=== PATIENT | female | born 1945 | race Caucasian/White ===

== ENCOUNTER → 2017-06-08 | Outpatient (REF) | payer MEDICARE | LOC: M LAB REF 12:52 | PROVIDERS: ATTEND Family Medicine | DX: D64.9 Anemia, unspecified (principal) ==

== ENCOUNTER → 2017-07-10 | Outpatient (CLI) | payer MEDICARE ==
--- NOTE | 2017-07-10 11:33 | REPMRS ---
Patient History The patient states she has not had a clinical breast exam in over a year. No known family history of cancer. 3 excisional biopsies of both breasts. Digital Woman Screen Mammo: July 10, 2017 - Exam #: [id number] Bilateral CC and MLO view(s) were taken. Technologist: Fina Vazquez, Technologist Prior study comparison: June 18, 2016, digital woman screen mammo performed at [facility] to [facility]. October 03, 2014, digital woman screen mammo performed at [facility] to [facility]. FINDINGS: There are scattered fibroglandular densities. There has been no change in the appearance of the mammogram from the prior studies. There is a mild amount of residual fibroglandular tissue which is fairly symmetric. There is no interval development of dominant mass, architectural distortion, or clustered microcalcification suggestive of malignancy. ASSESSMENT: BI-RADS/ACR category 1 mammogram. Negative. Recommendation Routine screening mammogram in 1 year (for women over age 40). This mammogram was interpreted with the aid of an FDA-approved computer-aided dectection system. Electronically Signed By: Jesus Case MD 07/10/17 [id number]
--- NOTE | 2017-07-13 09:34 | DEXA ---
AP SPINE L1 - L4 1.358 1.3 3.0 LT FEMUR TOTAL 0.991 -0.1 1.5 RT FEMUR TOTAL 1.004 0.0 1.6 TOTAL BODY TOTAL OTHER DUAL FEMUR FRAX* ASSESSMENT Risk factors: Not performed. 10 year probability of fracture Major osteoporotic fracture % Hip fracture % COMMENTS: Normal bone densitometry of the spine. There is low bone density of the hips. FOLLOW-UP: Recommendation for the next bone density exam: 2 years. KIM
== END ==
LOC: M WHC 08:29
PROVIDERS: ATTEND Family Medicine
DX: Z12.31 Encounter for screening mammogram for malignant neoplasm of breast (principal); Z78.0 Asymptomatic menopausal state
CPT/HCPCS: 77080; G0202

== ENCOUNTER 2018-05-04 09:35 | Inpatient (IN) | payer MEDICARE ==
[2018-05-04] MEDS: ONDANSETRON 4MG/2ML VIAL (J2405) IV (10:43)
[2018-05-04] MEDS: KETOROLAC 30 MG/ML VIAL (J1885) IV ×3 (10:44→23:46)
[2018-05-04 10:53] LABS: BASO % 0.2 % (0.0-1.0); EOS # 0.1 10^3/uL (0.0-0.50); EOS % 1.4 % (0.0-3.0); HEMATOCRIT 36.3 % (36.0-47.0); HEMOGLOBIN 11.9 g/dl (12.0-15.5); IMMATURE GRANULOCYTE % 0.6 % (0-3.0); LYMPH # 1.9 10^3/uL (1.5-4.5); LYMPH % 18.2 % (24.0-44.0); MEAN CORPUSCULAR HEMOGLOBIN 31.1 pg (27.0-33.0); MEAN CORPUSCULAR HGB CONC 32.8 g/dl (32.0-36.5); MEAN CORPUSCULAR VOLUME 94.8 fl (80.0-96.0); MONO # 0.8 10^3/uL (0.0-0.8); MONO % 7.4 % (0.0-5.0); NEUTROPHILS # 7.5 10^3/uL (1.8-7.7); NEUTROPHILS % 72.2 % (36.0-66.0); PLATELET COUNT, AUTOMATED 351 10^3/uL (150-450); RED BLOOD COUNT 3.83 10^6/uL (4.00-5.40); RED CELL DISTRIBUTION WIDTH 13.7 % (11.5-14.5); WHITE BLOOD COUNT 10.3 10^3/uL (4.0-10.0)
[2018-05-04 11:19] LABS: LACTIC ACID SEPSIS PROTOCOL 1.4 MMOL/L (0.4-2.0)
[2018-05-04] MEDS ORDERED: DEXTROSE 50% 50 ML SYRINGE IV (13:30)
[2018-05-04] MEDS ORDERED: ACETAMINOPHEN 325 MG TAB PO (13:30)
[2018-05-04] MEDS ORDERED: GLUCAGON FOR INJ 1 MG VIAL (J1610) SC (13:30)
[2018-05-04] MEDS ORDERED: HYDROMORPHONE HCL 0.5 MG/ 0.5 ML SYRINGE (J1170 PER 1) IV ×2 (13:30)
[2018-05-04] MEDS ORDERED: GLUCOSE 4 GM CHEW TABLET PO (13:30)
[2018-05-04] MEDS ORDERED: IPRATROPIUM 0.5MG/ALBUTEROL 2.5MG INH SOL UD 3ML (DUONEB)(J7620) NEB (13:30)
[2018-05-04] MEDS ORDERED: hydrALAZINE INJ 20 MG/ML VIAL IV (13:45)
[2018-05-04] MEDS ORDERED: POTASSIUM CHLORIDE INJ 20 MEQ in NS 1,000 ML IV (13:45)
[2018-05-04] MEDS: EZETIMIBE 10 MG TAB (ZETIA) PO (17:33)
[2018-05-04] MEDS: ASPIRIN 81 MG ENTERIC TAB PO (17:33)
[2018-05-04] MEDS: KCL 20MEQ in NS 1000ML 1,000 ML IV ×2 (17:33→22:14)
[2018-05-04] MEDS: LISINOPRIL 20 MG TAB PO (17:33)
[2018-05-04] MEDS: FENOFIBRATE 145 MG TAB (TRICOR) PO (17:33)
[2018-05-04] MEDS: ALLOPURINOL 300 MG TAB PO (17:33)
[2018-05-04] MEDS: HumaLOG INSULIN (NovoLOG) PER UNIT SC (18:28)
[2018-05-04 18:29] LABS: BEDSIDE GLUCOSE 152 MG/DL (83-110)
[2018-05-04] MEDS: HEPARIN SOD (PORCINE) 5000 UNITS/ML VIAL SC (20:43)
[2018-05-04] MEDS: ALPRAZolam 0.25 MG TAB PO (22:14)
[2018-05-05 02:56] LABS: BEDSIDE GLUCOSE 143 MG/DL (83-110)
[2018-05-05] MEDS: KCL 20MEQ in NS 1000ML 1,000 ML IV (04:20)
[2018-05-05] MEDS: HumaLOG INSULIN (NovoLOG) PER UNIT SC ×5 (06:00→20:27)
[2018-05-05] MEDS: KETOROLAC 30 MG/ML VIAL (J1885) IV ×2 (06:03→22:47)
[2018-05-05 06:24] LABS: HEMATOCRIT 28.4 % (36.0-47.0); MEAN CORPUSCULAR HEMOGLOBIN 31.4 pg (27.0-33.0); MEAN CORPUSCULAR HGB CONC 31.7 g/dl (32.0-36.5); PLATELET COUNT, AUTOMATED 269 10^3/uL (150-450); RED BLOOD COUNT 2.87 10^6/uL (4.00-5.40); RED CELL DISTRIBUTION WIDTH 13.7 % (11.5-14.5); WHITE BLOOD COUNT 7.7 10^3/uL (4.0-10.0)
[2018-05-05 06:33] LABS: BEDSIDE GLUCOSE 136 MG/DL (83-110)
[2018-05-05] MEDS: ONDANSETRON 4MG/2ML VIAL (J2405) IV (06:33)
[2018-05-05 06:47] LABS: ALKALINE PHOSPHATASE 33 U/L (45-117); ALT/SGPT 18 U/L (12-78); ANION GAP 7 MEQ/L (8-16); AST/SGOT 17 U/L (7-37); BILIRUBIN,TOTAL 0.2 MG/DL (0.2-1.0); BLOOD UREA NITROGEN 40 MG/DL (7-18); CARBON DIOXIDE LEVEL 22 MEQ/L (21-32); CHLORIDE LEVEL 118 MEQ/L (98-107); CREATININE FOR GFR 1.01 MG/DL (0.55-1.30); GLOMERULAR FILTRATION RATE 57.2 (>39); GLUCOSE, FASTING 127 MG/DL (70-100); LIPASE 4620 U/L (73-393); MAGNESIUM LEVEL 1.9 MG/DL (1.8-2.4)
[2018-05-05 07:05] LABS: ALBUMIN/GLOBULIN RATIO 0.96 (1.00-1.93)
[2018-05-05 07:06] LABS: POTASSIUM SERUM 6.6 MEQ/L (3.5-5.1)
[2018-05-05 07:07] LABS: SODIUM LEVEL 147 MEQ/L (136-145)
[2018-05-05 07:09] LABS: CALCIUM LEVEL 7.3 MG/DL (8.8-10.2)
[2018-05-05 07:10] LABS: ALBUMIN 2.5 GM/DL (3.2-5.2); TOTAL PROTEIN 5.1 GM/DL (6.4-8.2)
[2018-05-05] MEDS: HumuLIN R (REGULAR) INSULIN (NovoLIN R) **100U/ML** PER UNIT SC (07:35)
[2018-05-05] MEDS: CALCIUM GLUCONATE 1,000 MG in D5W MINI-BAG PLUS 100 ML IV (07:36)
[2018-05-05] MEDS: D5W/0.45% SODIUM CHLORIDE 1,000 ML IV (07:36)
[2018-05-05] MEDS: DEXTROSE 50% 50 ML SYRINGE IV (07:36)
[2018-05-05 08:24] LABS: POTASSIUM SERUM 4.5 MEQ/L (3.5-5.1)
[2018-05-05] MEDS: FENOFIBRATE 145 MG TAB (TRICOR) PO (08:36)
[2018-05-05] MEDS: ASPIRIN 81 MG ENTERIC TAB PO (08:36)
[2018-05-05] MEDS: ALLOPURINOL 300 MG TAB PO (08:36)
[2018-05-05] MEDS: EZETIMIBE 10 MG TAB (ZETIA) PO (08:36)
[2018-05-05] MEDS: HEPARIN SOD (PORCINE) 5000 UNITS/ML VIAL SC ×2 (08:37→20:27)
[2018-05-05] MEDS: ALPRAZolam 0.25 MG TAB PO ×3 (08:43→23:33)
[2018-05-05] MEDS: ALBUTEROL SULFATE 2.5 MG/0.5 ML INH NEB SOLN NEB (09:34)
[2018-05-05 11:37] LABS: BEDSIDE GLUCOSE 118 MG/DL (83-110)
[2018-05-05 16:50] LABS: BEDSIDE GLUCOSE 195 MG/DL (83-110)
[2018-05-05 18:29] LABS: POTASSIUM SERUM 4.7 MEQ/L (3.5-5.1)
[2018-05-05 20:27] LABS: BEDSIDE GLUCOSE 129 MG/DL (83-110)
[2018-05-06 06:00] LABS: HEMATOCRIT 30.2 % (36.0-47.0); HEMOGLOBIN 9.6 g/dl (12.0-15.5); MEAN CORPUSCULAR HEMOGLOBIN 31.2 pg (27.0-33.0); MEAN CORPUSCULAR HGB CONC 31.8 g/dl (32.0-36.5); MEAN CORPUSCULAR VOLUME 98.1 fl (80.0-96.0); PLATELET COUNT, AUTOMATED 269 10^3/uL (150-450); RED BLOOD COUNT 3.08 10^6/uL (4.00-5.40); RED CELL DISTRIBUTION WIDTH 13.8 % (11.5-14.5)
[2018-05-06 06:18] LABS: ALBUMIN 2.5 GM/DL (3.2-5.2); ALBUMIN/GLOBULIN RATIO 0.64 (1.00-1.93); ALKALINE PHOSPHATASE 37 U/L (45-117); ALT/SGPT 19 U/L (12-78); ANION GAP 8 MEQ/L (8-16); AST/SGOT 16 U/L (7-37); BILIRUBIN,TOTAL 0.2 MG/DL (0.2-1.0); BLOOD UREA NITROGEN 34 MG/DL (7-18); CALCIUM LEVEL 8.4 MG/DL (8.8-10.2); CARBON DIOXIDE LEVEL 24 MEQ/L (21-32); CHLORIDE LEVEL 111 MEQ/L (98-107); CREATININE FOR GFR 1.02 MG/DL (0.55-1.30); GLOMERULAR FILTRATION RATE 56.6 (>39); GLUCOSE, FASTING 126 MG/DL (70-100); LIPASE 1374 U/L (73-393); MAGNESIUM LEVEL 2.1 MG/DL (1.8-2.4); POTASSIUM SERUM 4.3 MEQ/L (3.5-5.1); SODIUM LEVEL 143 MEQ/L (136-145); TOTAL PROTEIN 6.4 GM/DL (6.4-8.2)
[2018-05-06] MEDS: HumaLOG INSULIN (NovoLOG) PER UNIT SC ×2 (07:46→11:48)
[2018-05-06] MEDS: ALLOPURINOL 300 MG TAB PO (07:47)
[2018-05-06] MEDS: HEPARIN SOD (PORCINE) 5000 UNITS/ML VIAL SC (07:47)
[2018-05-06] MEDS: EZETIMIBE 10 MG TAB (ZETIA) PO (07:47)
[2018-05-06] MEDS: FENOFIBRATE 145 MG TAB (TRICOR) PO (07:47)
[2018-05-06] MEDS: ASPIRIN 81 MG ENTERIC TAB PO (07:47)
[2018-05-06] MEDS: BREO ELLIPTA INH ×2 (09:00→11:41)
[2018-05-06] MEDS: FUROSEMIDE 20 MG TAB PO (11:30)
[2018-05-06 11:35] LABS: BEDSIDE GLUCOSE 156 MG/DL (83-110)
[2018-05-06] MEDS: ALPRAZolam 0.25 MG TAB PO (11:47)
== END 2018-05-06 12:22 | disposition home or self-care (01) | DRG 439 ==
LOC: M ED 09:35 → M ED INP 13:23 → M PCU 16:35
DX: K85.90 Acute pancreatitis without necrosis or infection, unspecified (principal); I50.32 Chronic diastolic (congestive) heart failure; I11.0 Hypertensive heart disease with heart failure; E11.42 Type 2 diabetes mellitus with diabetic polyneuropathy; I25.10 Atherosclerotic heart disease of native coronary artery without angina pectoris; J45.909 Unspecified asthma, uncomplicated; E78.5 Hyperlipidemia, unspecified; Z66 Do not resuscitate; Z88.1 Allergy status to other antibiotic agents; Z88.5 Allergy status to narcotic agent; Z88.8 Allergy status to other drugs, medicaments and biological substances; Z90.49 Acquired absence of other specified parts of digestive tract; Z79.82 Long term (current) use of aspirin; Z79.899 Other long term (current) drug therapy; Z79.84 Long term (current) use of oral hypoglycemic drugs; Z86.73 Personal history of transient ischemic attack (TIA), and cerebral infarction without residual deficits

== ENCOUNTER → 2018-05-04 | Outpatient (CLI) | payer MEDICARE ==
[2018-05-04 10:47] LABS: ALKALINE PHOSPHATASE 44 U/L (45-117); ALT/SGPT 27 U/L (12-78); AST/SGOT 21 U/L (7-37); BASO % 0.2 % (0.0-1.0); BILIRUBIN,TOTAL 0.2 MG/DL (0.2-1.0); BLOOD UREA NITROGEN 44 MG/DL (7-18); CALCIUM LEVEL 9.3 MG/DL (8.8-10.2); CREATININE FOR GFR 1.23 MG/DL (0.55-1.30); EOS # 0.2 10^3/uL (0.0-0.50); EOS % 1.6 % (0.0-3.0); GLUCOSE, FASTING 194 MG/DL (70-100); HEMOGLOBIN 12.5 g/dl (12.0-15.5); IMMATURE GRANULOCYTE % 0.6 % (0-3.0); LIPASE 24609 U/L (73-393); LYMPH # 2.2 10^3/uL (1.5-4.5); MEAN CORPUSCULAR HEMOGLOBIN 31.1 pg (27.0-33.0); MEAN CORPUSCULAR HGB CONC 32.9 g/dl (32.0-36.5); MEAN CORPUSCULAR VOLUME 94.5 fl (80.0-96.0); MONO % 8.6 % (0.0-5.0); NEUTROPHILS # 8.6 10^3/uL (1.8-7.7); PLATELET COUNT, AUTOMATED 410 10^3/uL (150-450); POTASSIUM SERUM 3.7 MEQ/L (3.5-5.1); RED BLOOD COUNT 4.02 10^6/uL (4.00-5.40); RED CELL DISTRIBUTION WIDTH 13.6 % (11.5-14.5); SODIUM LEVEL 138 MEQ/L (136-145); WHITE BLOOD COUNT 12.2 10^3/uL (4.0-10.0)
[2018-05-04 10:51] LABS: AMYLASE 2272 U/L (25-115)
[2018-05-04 11:54] LABS: ALBUMIN 3.7 GM/DL (3.2-5.2); ANION GAP 8 MEQ/L (8-16); CARBON DIOXIDE LEVEL 30 MEQ/L (21-32); CHLORIDE LEVEL 100 MEQ/L (98-107); TOTAL PROTEIN 7.4 GM/DL (6.4-8.2)
== END ==
LOC: M WUC 08:50
DX: R10.816 Epigastric abdominal tenderness (principal)

== ENCOUNTER → 2018-05-11 | Outpatient (REF) | payer MEDICARE ==
[2018-05-11 12:56] LABS: LIPASE 1374 U/L (73-393)
== END ==
LOC: M LAB REF 11:46
DX: K85.00 Idiopathic acute pancreatitis without necrosis or infection (principal)
CPT/HCPCS: 83690

== ENCOUNTER → 2018-07-06 | Outpatient (REF) | payer MEDICARE ==
[2018-07-06 14:17] LABS: LIPASE 706 U/L (73-393)
== END ==
LOC: M LAB REF 13:29
DX: R10.30 Lower abdominal pain, unspecified (principal)
CPT/HCPCS: 83690

== ENCOUNTER → 2018-09-27 | Outpatient (REF) | payer MEDICARE ==
[~2018-09-27] MED LIST: ACTO30TA15 PO; ALLO10TA PO; ALPH600C PO; ASPI1TAB PO; BREO1INH INH; CLAR1CHW PO; FLON1SPR; FURO20TA2 PO; JANU25TA PO; KETO10TAB PO; LISI20TA PO; MAGN400C PO; METF500T13 PO; MULTCAP PO; PROAAER10 INH; RANI15TA PO; TRIC145T22 PO; TYLE325T5 PO; XANA0.25 PO; ZETI10TA30 PO; ZOFR4TAB14 SL; [UNRECOGNIZED DRUG - OTHER] PO
[2018-09-27 14:38] LABS: FOLATE 21.1 NG/ML
== END ==
LOC: M LAB REF 13:07
PROVIDERS: ATTEND Internal Medicine Nephrology
DX: D64.9 Anemia, unspecified (principal)

== ENCOUNTER → 2018-09-30 | Outpatient (CLI) | payer MEDICARE ==
--- NOTE | 2018-09-30 10:01 | REP ---
RENAL ULTRASOUND: HISTORY: Chronic kidney disease. The kidneys are normal in echogenicity. The right kidney measures 5.4 cm in transverse x 5.6 cm in AP x 10.2 in cephalocaudal dimensions. The left kidney measures 5.2 cm in transverse x 5.2 cm in AP x 11.6 cm in cephalocaudal dimensions. A 3 cm cyst is present in the right kidney. There is no hydronephrosis or mass. The urinary bladder is not well see, however, there is no definite urinary bladder abnormality. IMPRESSION: 3 cm right renal cyst. Electronically Signed by Negrito Narayan MD 09/30/2018 10:03 A
== END ==
LOC: M RAD 07:52
PROVIDERS: ATTEND Internal Medicine Nephrology
DX: N28.1 Cyst of kidney, acquired (principal); N18.3 Chronic kidney disease, stage 3 (moderate); E11.22 Type 2 diabetes mellitus with diabetic chronic kidney disease

== ENCOUNTER 2019-05-02 06:05 | Inpatient (IN) | payer MEDICARE ==
[~2019-05-02] VITALS: Ht 152.4 cm; Wt 76.9 kg
[2019-05-02] VITALS (11 sets, daily range): BP systolic 101–146; BP diastolic 53–94
[~2019-05-02 06:05] MED LIST changes: -ASPI1TAB PO; +ASPI81TA26 PO; -CLAR1CHW PO; +CLAR1CHW2 PO
[2019-05-02 06:36] LABS: BASO # 0.1 10^3/uL (0.0-0.2); BASO % 0.6 % (0.0-1.0); EOS # 0.3 10^3/uL (0.0-0.50); EOS % 2.7 % (0.0-3.0); HEMATOCRIT 33.8 % (36.0-47.0); HEMOGLOBIN 10.5 g/dl (12.0-15.5); LYMPH # 2.9 10^3/uL (1.5-4.5); LYMPH % 27.4 % (24.0-44.0); MEAN CORPUSCULAR HEMOGLOBIN 30.5 pg (27.0-33.0); MEAN CORPUSCULAR HGB CONC 31.1 g/dl (32.0-36.5); MEAN CORPUSCULAR VOLUME 98.3 fl (80.0-96.0); MONO # 0.8 10^3/uL (0.0-0.8); MONO % 7.8 % (0.0-5.0); NEUTROPHILS # 6.3 10^3/uL (1.8-7.7); NEUTROPHILS % 60.1 % (36.0-66.0); PLATELET COUNT, AUTOMATED 346 10^3/uL (150-450); RED BLOOD COUNT 3.44 10^6/uL (4.00-5.40); WHITE BLOOD COUNT 10.5 10^3/uL (4.0-10.0)
[2019-05-02 06:54] LABS: INR 1.12; PROTHROMBIN TIME 14.1 SECONDS (11.8-14.0)
[2019-05-02 07:06] LABS: ALT/SGPT 35 U/L (12-78); BILIRUBIN,DIRECT 0.2 MG/DL (0.0-0.2); BILIRUBIN,TOTAL 0.3 MG/DL (0.2-1.0); BLOOD UREA NITROGEN 63 MG/DL (7-18); CALCIUM LEVEL 8.6 MG/DL (8.8-10.2); CARBON DIOXIDE LEVEL 16 MEQ/L (21-32); CHLORIDE LEVEL 110 MEQ/L (98-107); CK-MB VALUE MASS < 1.0 NG/ML (<3.6); CPK CREATINE PHOSPHOKINASE 61 U/L (26-192); CREATININE FOR GFR 2.45 MG/DL (0.55-1.30); GLOMERULAR FILTRATION RATE 20.5 (>39); GLUCOSE, FASTING 182 MG/DL (70-100); LIPASE 334 U/L (73-393); MB/CK RELATIVE INDEX 1.64 (< OR =4); POTASSIUM SERUM 7.1 MEQ/L (3.5-5.1); SODIUM LEVEL 136 MEQ/L (136-145); TOTAL PROTEIN 6.6 GM/DL (6.4-8.2); TROPONIN I < 0.02 NG/ML (< 0.10)
[2019-05-02] MEDS ORDERED: DEXTROSE 50% 50 ML SYRINGE As Ordered ONE (07:06)
[2019-05-02] MEDS ORDERED: DEXTROSE 50% 50 ML SYRINGE IV STA (07:06)
[2019-05-02] MEDS ORDERED: HumuLIN R (REGULAR) INSULIN (NovoLIN R) **100U/ML** PER UNIT IV ONE ×2 (07:15→09:45)
[2019-05-02] MEDS ORDERED: CALCIUM GLUCONATE 1,000 MG in D5W MINI-BAG PLUS 100 ML IV ONE (07:15)
[2019-05-02] MEDS ORDERED: NS 500 ML IV ONE (07:15)
--- NOTE | 2019-05-02 07:38 | ECGEPIP ---
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
--- NOTE | 2019-05-02 07:43 | REP ---
Portable chest, 06:55 a.m., single AP view with the patient supine: Comparison is 02/14/2014. There are diffuse bilateral interstitial infiltrates as an interval change. There are no pleural effusions. Cardiac size is upper maggi, taking into consideration positioning. There is a pacemaker entering from a right IJ approach with the tip in the right atrium. Supine position precludes evaluation for pneumothorax. There is a radiolucent defibrillator paddle over the right hemithorax. Impression: Diffuse bilateral interstitial infiltrates. Pacemaker. Supine positioning precludes evaluation for pneumothorax. Electronically Signed by Jesus Kunz MD 05/02/2019 07:35 A
[2019-05-02] MEDS ORDERED: FURO40TA2 PO (08:06)
[2019-05-02] MEDS ORDERED: DOCU-129 PO (08:06)
[2019-05-02] MEDS ORDERED: LORA-674 PO (08:06)
[2019-05-02] MEDS ORDERED: FERR32TA PO (08:06)
[2019-05-02] MEDS ORDERED: SPIR-10 PO (08:06)
[2019-05-02] MEDS ORDERED: ZYLO300T6 PO (08:06)
[2019-05-02] MEDS ORDERED: BYST10TA2 PO (08:06)
[2019-05-02] MEDS ORDERED: ALPHTAB PO (08:06)
[2019-05-02] MEDS ORDERED: AMLO10TA5 PO (08:06)
[2019-05-02] MEDS ORDERED: GLIM1TAB PO (08:06)
[2019-05-02] MEDS ORDERED: LISI-538 PO (08:06)
[2019-05-02 08:32] LABS: CALCIUM LEVEL 8.5 MG/DL (8.8-10.2); CREATININE FOR GFR 2.37 MG/DL (0.55-1.30); GLOMERULAR FILTRATION RATE 21.3 (>39); POTASSIUM SERUM 6.2 MEQ/L (3.5-5.1)
[2019-05-02] MEDS ORDERED: D5W/0.9% SODIUM CHLORIDE 1,000 ML IV SCH (08:43)
[2019-05-02] MEDS ORDERED: GLUCAGON FOR INJ 1 MG VIAL (J1610) SC PRN (08:45)
[2019-05-02] MEDS ORDERED: DEXTROSE 50% 50 ML SYRINGE IV PRN (08:45)
[2019-05-02] MEDS ORDERED: GLUCOSE 4 GM CHEW TABLET PO PRN (08:45)
[2019-05-02] MEDS: CHLORHEXIDINE GLUCONATE 0.12 % 15ML UDC (PERIDEX ORAL RINSE) MT SCH ×2 (09:00→20:01)
[2019-05-02] MEDS ORDERED: SOD POLYSTYRENE SULFONATE SUSP 15 GM/60 ML UD PO ONE (09:15)
--- NOTE | 2019-05-02 09:28 | HPEPDOC ---
General Date of Admission 05/02/19 Date of Service: May 02, 2019 Primary Care Physician: TUCKER MEDEROS M.D. Other Providers Dr Doty (nephrology), Dr Perez (cardiology), Dr Galdamez (pulmonology) Consult: Dr Morrison Chief Complaint The patient is a 73-year-old female admitted with a reason for visit of Slow Heart Rate. Source: Patient, Family, EMS, Old records Exam Limitations: No limitations Timing/Duration: Day(s) (2) Severity: Severe Associated Symptoms: Cough, Diaphoresis, Chills, Malaise, Nausea, Shortness of breath, Weakness, Hypotension, Dizziness History of Present Illness 73 yo female brought to ED unresponsive by EMS with HR 20 and SBP 50 foudn to be in third degree block. IJ transvenous pacer placed by ED doctor patient states "sick" for 2 days, manifested by chills, diaphoresis, orthopnea, and left jaw pain. Was taking biaxin without improvement. Seen by urgent care yesterday evening and appointment set up for dentist today. patient states today at 330, had near syncopal episode and worsening left jaw pain (constant achy), fever (subjective), diaphoresis and chills. using oragel to teeth without relief. Went up to bathroom and had severe back pain between shoulder blades , nausea, no vomiting, dizziness. Voided/stooled in bathroom with near syncope, got up and laid on couch and found unresponsive by . EMS called and patient found to be diaphoretic with pulse in 20's. Brought to ED found to be in 3rd degree block, temp pace maker floated and labs showed negative troponin, elevated K (7.0) and elevated Creatinine (unknown baseline). She was treated with 12 unit insulin,D50 1 amp and calcium gluconate 1 amp. Patient states she is scheduled for TETO study because of noctural hypoxia and sees Dr Galdamez for underlying COPD. Currently patient states no jaw pain, no back pain . Had NM stress test [address] Perez. New medication changes at last cardiology appointment includ e: stopping coreg, starting samples of bystolic 10mg , amlodipine 10mg, decreased lisinopril from 20mg to 10mg, clarithomycin x 2 days for tooth pain. patient continued to take her OTC potassium pills. Current medication list brought in by patient: fenofibrate, allopurinol, breo,proair,magnesium, alprazolam,lisinopril,glimerpide, lasix 40mg,spironolactone 25mg,iron, zetia,zantac, metformen, ASA, clarinex, biaxin (clarithomycin). See med rec below Home Medications Scheduled Allopurinol (Zyloprim) 300 Mg Tablet, 300 MG PO DAILY, (Reported) Alpha Lipoic Acid (Alpha Lipoic Acid) 200 Mg Tablet, 200 MG PO DAILY, (Reported) TAKES AT NOON Amlodipine Besylate (Amlodipine Besylate) 10 Mg Tablet, 10 MG PO DAILY, (Reported) Aspirin (Aspirin EC) 81 Mg Tab, 81 MG PO QHS, (Reported) Ezetimibe (Zetia) 10 Mg Tab, 10 MG PO DAILY, (Reported) TAKES AT NOON Fenofibrate Nanocrystallized (Tricor) 145 Mg Tab, 145 MG PO QHS, (Reported) Ferrous Gluconate (Ferrous Gluconate) 324 Mg Tablet, 324 MG PO Q2D, (Reported) TAKES AT DINNER TIME Fluticasone/Vilanterol (Breo Ellipta 100-25 Mcg INH) 1 Inh Inh, 1 PUFF INH DAILY, (Reported) Furosemide (Furosemide) 40 Mg Tablet, 40 MG PO DAILY, (Reported) Glimepiride (Glimepiride) 1 Mg Tablet, 1 MG PO DAILY, (Reported) TAKES AT 1200 Lisinopril (Lisinopril) 20 Mg Tablet, 10 MG PO DAILY, (Reported) Magnesium Oxide (Magnesium) 400 Mg Cap, 400 MG PO BID, (Reported) Metformin HCl (Metformin HCl) 500 Mg Tab, 500 MG PO DAILY, (Reported) Nebivolol HCl (Bystolic) 10 Mg Tablet, 10 MG PO QHS, (Reported) Ranitidine Hcl (Ranitidine HCl) 150 Mg Tab, 1 TAB PO BID, (Reported) Spironolactone (Spironolactone) 25 Mg Tablet, 25 MG PO DAILY, (Reported) Scheduled PRN Albuterol Sulfate (Proair Hfa) 108 Mcg/Act Aer, 2 PUFF INH BID PRN for SOB/WHEEZING, (Reported) Alprazolam (Xanax) 0.25 Mg Tab, 0.25 MG PO QID PRN for ANXIETY, (Reported) Docusate Sodium (Stool Softener) 100 Mg Capsule, 100 MG PO DAILY PRN for CONSTIPATION, (Reported) Loratadine (Loratadine) 10 Mg Tablet, 10 MG PO DAILY PRN for ALLERGIES, (Reported) Allergies Coded Allergies: nitroglycerin (Verified Allergy, Unknown, 05/02/19) clindamycin (Verified Adverse Reaction, Severe, DEATHLY SICK, 05/02/19) morphine (Verified Adverse Reaction, Mild, HYPERACTIVE, 05/02/19) Uncoded Allergies: GENERAL ANESTHESIA (Allergy, Unknown, 05/02/19) Past Medical History Medical History HTN, diabetes (not on insulin), TIA, CAD with 1 stent placed 2010, COPD, pancreatitis 2017, peripheral neuropathy, asthma, dyslipidemia, CKD III Past surgical history: cataracts bilaterally, cardiac stentx 1, hysterectomy, breast biopsy, cholecystectomy Social history: no tobacco, no EtOH, , independent activity of daily living Family history: mother from [place], father from [place] chore[place] complications A-FIB/CHADSVASC A-FIB History Current/History of A-Fib/PAF?: No Review of Systems Other systems 10 systems reviewed and negative except as mentioned in HPI Physical Examination General Exam: Positive: Alert, Cooperative, No Acute Distress Eye Exam: Positive: PERRLA, Conjunctiva & lids normal, EOMI ENT Exam: Positive: Atraumatic, Mucous membr. moist/pink, Pharynx Normal Neck Exam: Positive: Supple, +2 carotid pulse wo bruit, Other (no JVD, no adenopathy; right IJ transvenous pacemaker present) Chest Exam: Positive: Clear to auscultation, Normal air movement; Negative: Rales, Rhonchi, Wheezing, Diminished Heart Exam: Positive: Bradycardic (50-90 (transvenous temp pacer set for 90 verbal report)), Other (no murmur) Telemetry: Positive: Sinus, Bradycardia Abdomen Exam: Positive: Normal bowel sounds, Soft (NT ND) Extremity Exam: Positive: Normal pulses; Negative: Clubbing, Cyanosis, Edema Skin Exam: Positive: Nl turgor and temperature Neuro Exam: Positive: Normal Speech, Strength at 5/5 X4 ext, Normal Tone Psych Exam: Positive: Mental status NL, Mood NL, Oriented x 3 Other physical findings EKG #1 (images reviewed)- third degree block (20 bpm) EKG #2 post temp pacer insertion: intermittent pacer spikes, NSR with peaked T waves CXR images reviewed with ED doctor: transvenous pacer wire appears in good position, vascular congestions without effusions, no infiltrates Vital Signs Vital Signs Date Time Temp Pulse Resp B/P (MAP) Pulse Ox O2 Delivery O2 Flow Rate FiO2 05/02/19 06:57 132/60 (84) 05/02/19 06:55 51 16 93 05/02/19 06:48 Room Air Laboratory Data Labs 24H Laboratory Tests 2 05/02/19 06:22: Immature Granulocyte % (Auto) 1.4, White Blood Count 10.5H, Red Blood Count 3.44L, Hemoglobin 10.5L, Hematocrit 33.8L, Mean Corpuscular Volume 98.3H, Mean Corpuscular Hemoglobin 30.5, Mean Corpuscular Hemoglobin Concent 31.1L, Red Cell Distribution Width 14.0, Platelet Count 346, Neutrophils (%) (Auto) 60.1, Lymphocytes (%) (Auto) 27.4, Monocytes (%) (Auto) 7.8H, Eosinophils (%) (Auto) 2.7, Basophils (%) (Auto) 0.6, Neutrophils # (Auto) 6.3, Lymphocytes # (Auto) 2.9, Monocytes # (Auto) 0.8, Eosinophils # (Auto) 0.3, Basophils # (Auto) 0.1, Nucleated Red Blood Cells % (auto) 0.0, Anion Gap 10, Glomerular Filtration Rate 20.5L, Calcium Level 8.6L, Aspartate Amino Transf (AST/SGOT) 44H, Alanine Aminotransferase (ALT/SGPT) 35, Alkaline Phosphatase 43L, Total Bilirubin 0.3, Direct Bilirubin 0.2, Total Creatine Kinase 61, Creatine Kinase MB < 1.0, Creatine Kinase MB Relative Index 1.64, Troponin I < 0.02, Total Protein 6.6, Albumin 3.0L, Albumin/Globulin Ratio 0.83L, Lipase 334 05/02/19 06:23: Prothrombin Time 14.1H, Prothromb Time International Ratio 1.12 CBC/BMP Laboratory Tests 05/02/19 06:22 Red Blood Count 3.44 L, Mean Corpuscular Volume 98.3 H, Mean Corpuscular Hemoglobin 30.5, Mean Corpuscular Hemoglobin Concent 31.1 L, Red Cell Distribution Width 14.0, Neutrophils (%) (Auto) 60.1, Lymphocytes (%) (Auto) 27.4, Monocytes (%) (Auto) 7.8 H, Eosinophils (%) (Auto) 2.7, Basophils (%) (Auto) 0.6, Neutrophils # (Auto) 6.3, Lymphocytes # (Auto) 2.9, Monocytes # (Auto) 0.8, Eosinophils # (Auto) 0.3, Basophils # (Auto) 0.1 Assessment/Plan 1) complete heart block transvenous temporary pacer placed, Dr Morrison consulted probably due to hyperkalemia, however, need to r/o PA. cardiac echo, serial troponin NPO until plan developed (ie possible permanent pacemaker placement , if and when) 2) hyperkalemia due to spironolactone, GEOR[place]IANA-I, OTC K supplement repeat BMP, treated with 12 unit insulin, D50,calcium gluc 1 amp in ED Start kayexalate x1, albuterol neb 3) BIANCA with CKD III Consult nephrology. unknown baselined creatinine; unclear if BIANCA due to medications (metformen, lasix, spironolactone, GE[place]NA-I) or because of bradycardia/hypotension Start D5 NS IVF Elizabeth ,strict I/O 4) Diabetes - not on [employer] insulin D5 NS, npo, accucheck q6h, SSI; hold metformen 5) HTN with subsequent hypotension associated with 3rd degree block monitor for now. Hold betablockers, GEORGIANA-I and diuretics 6) CAD with 1 stent First troponin negative, check Echo and serial troponins 7) COPD without exacerbation albuterol scheduled q4 hours (for temporary treatment of bradycardia , hyperkalemia and COPD) Duoneb q6h consider adding pulmicort 8) nocturnal hypoxia - probable TETO Scheduled as outpatient for TETO testing. Hold alprazolam at HS for now; oxygen 2 liter NC 9) GERD - on zantac at home. continue with IV pepcid Because of complexity of case, marketing underwriter consulted for assistance CODE STATUS: MOLST DNR signed in 2018. reviewed by ED doctor with and rescinded for hospitalization. FULL CODE (trial of intubation/resuscitation) - document by ED on MOLST DVT PROPHYLAXIS: Lovenox Plan / VTE VTE Prophylaxis Ordered?: Yes AMBER NARVAEZ DO May 02, 2019 07:46
[2019-05-02] MEDS ORDERED: FAMOTIDINE INJ 20MG/2ML VIAL (S0028) IVP SCH (09:30)
[2019-05-02] MEDS ORDERED: DEXTROSE 50% 50 ML VIAL IV STA (09:42)
[2019-05-02] MEDS ORDERED: D5W 1,000 ML IV SCH (09:45)
[2019-05-02] MEDS ORDERED: ONDANSETRON 4MG/2ML VIAL (J2405) IV PRN (09:45)
[2019-05-02] MEDS ORDERED: GLUCAGON FOR INJ 1 MG VIAL (J1610) IV PRN (09:45)
[2019-05-02 09:52] LABS: ABG HCO3 17.3 MEQ/L (22.0-26.0); ABG PARTIAL PRESSURE CO2 31.2 mmHg (35.0-45.0); ABG PARTIAL PRESSURE O2 85.1 mmHg (75.0-100.0); ABG STANDARD HCO3 18.7 MEQ/L (22.0-26.0); ABG TOTAL CO2 18.3 MEQ/L (23.0-31.0); ABG pH (ARTERIAL) 7.363 UNITS (7.350-7.450)
[2019-05-02] MEDS ORDERED: FAMOTIDINE IV BAG 20 MG in APPROPRIATE DILUENT 1 EA IV SCH (10:00)
[2019-05-02] MEDS ORDERED: GLUCAGON FOR INJ 1 MG VIAL (J1610) IV STA (10:27)
[2019-05-02] MEDS: ENOXAPARIN 40 MG/0.4 ML SYRINGE (J1650) SC SCH (10:36)
[2019-05-02] MEDS: IPRATROPIUM 0.5MG/ALBUTEROL 2.5MG INH SOL UD 3ML (DUONEB)(J7620) NEB SCH ×3 (11:25→20:51)
--- NOTE | 2019-05-02 11:55 | CR ---
DATE OF CONSULTATION: 05/02/2019 Patient is a 63 year old female with a past medical history of asthma, hypertension, diabetes, CAD status post stent, pancreatitis, transient ischemic attack (TIA), hyperlipidemia, chronic kidney disease (CKD), who presented with complaints of worsening left jaw pain, lightheadedness, dizziness, and severe back pain. The patient reported that she had been feeling unwell for the past 4 days. She was complaining of left-sided jaw pain as well as subjective chills and diaphoresis. The patient was seen by Urgent Care and started on clarithromycin, which she has been taking for the past 2 days. She continues to report left jaw pain however, was also using Orajel without any improvement. The patient had started complaining of pain in her mid back between her shoulder blades as well as some nausea but did not have any vomiting. Earlier in the day, the patient had gotten up to go to the bathroom and then had dizziness and lightheadedness and was then found by her unresponsive. Emergency Medical Services (EMS), was called and the patient was found to be diaphoretic with a pulse in the 20s. In the emergency department (ED), the patient was found to have a blood pressure 121/59 and was saturating 93% on room air with heart rate in the 30s. She was given 12 units of insulin, 1 ampule of D50 and calcium gluconate 1 amp. She also had a transcutaneous pacing pads placed and a temporary transvenous pacer was also placed into the right atrium with intermittent capture. After pacing the patient symptomatically felt better. She reports her jaw pain has resolved as well as her back pain. She denies any increased shortness of breath currently. She her nausea has also improved and she denies any abdominal pain. She reports she has been urinating well. Denies any decreased urine output. She did see her rn invasive, Dr. Perez and had some medication adjustments done. She also had a nuclear medicine stress test done recently, which was reportedly negative. The patient was discontinued on her Coreg and started instead on Bystolic and amlodipine. Her previous dose of lisinopril was decreased. She is also on spironolactone and Lasix for diuretics. The patient does also take [id number] potassium supplements. PAST MEDICAL/SURGICAL HISTORY: 1. Hypertension. 2. Diabetes complicated with peripheral neuropathy. 3. TIA. 4. CAD. 5. Status post stent 2010. 6. Asthma. 7. Pancreatitis. 8. Hyperlipidemia. 9. CKD, stage III. 10. Cataract surgery bilaterally. 11. Hysterectomy. 12. breast biopsy. 13. Cholecystectomy. ALLERGIES: NITROGLYCERIN, CLINDAMYCIN, MORPHINE, and GENERAL ANESTHESIA with unknown reaction. HOME MEDICATIONS: - allopurinol - Breo - ProAir - magnesium - Xanax as needed - lisinopril - glimepiride - Lasix - spironolactone - iron - Zetia - Zantac - metformin - aspirin - loratadine - clarithromycin - amlodipine - Bystolic SOCIAL HISTORY: Denies history of smoking. No alcohol use. Lives with her . FAMILY HISTORY: Mother from myocardial infarction ([place]). Father with history of [place]. PHYSICAL EXAM: Temperature 96.7, pulse 67, respirations 16, blood pressure 121/91, oxygen saturation 94% on 6 liters nasal cannula. General: Patient is an elderly female, is awake and alert and responsive. Appears pale but not in any acute distress. HEENT: Normocephalic, atraumatic. Pupils are equal and reactive to light bilaterally. Mucous membranes are moist. She is with a temporary transvenous pacer. Neck is supple. Trachea is midline. No palpable adenopathy. Cardiovascular: Regular rate and rhythm. Normal S1, S2. No murmurs auscultated. Pulmonary exam: Decreased breath sounds bilaterally with some crackles at the bases. No significant wheezing or rhonchi. Abdomen is soft, obese, nontender, nondistended. Lower extremities: There is no lower extremity edema noted bilaterally. LABS: Hemoglobin 10.5, WBC 10.5, platelets 346. Chemistry: Sodium 136, potassium is 6.2, initial 7.1, chloride is 111, bicarbonate 17, BUN 66, creatinine 2.37, glucose 266. Initial troponins were negative. Initial lipase was normal. EKG on admission showed third degree block atrioventricular (AV) block with heart rate of 20 beats per minute. Chest x-ray showed a transvenous pacer wire with the tip in the right atrium. There is pulmonary vascular congestion noted bilaterally with no focal opacities. The left base of the lung is not clearly visualized. ASSESSMENT AND PLAN: Ms. Mejias is a 73-year-old female with a past medical history of hypertension, hyperlipidemia, asthma, chronic kidney disease, CAD, who presented with complaints of left-sided jaw pain, back pain, and lightheadedness and dizziness. The patient was found on arrival to be symptomatically bradycardic with a third degree AV block. The patient was also found to have significant hyperkalemia and acute on chronic renal failure. The patient had transvenous pacer placed in the ED with approximately 50% capture currently. With pacing her symptoms have improved. Her blood pressures have been stable, and she reports her jaw pain and back pain has also improved. She denies any shortness of breath or chest pain currently. The patient's chest x-ray did show evidence of pulmonary edema likely in the setting of her complete heart block, and she is on nasal cannula oxygen supplementation for acute hypoxemic respiratory failure secondary to the pulmonary edema. The patient's complete heart block is unclear etiology at this point. She is on beta-blockers and she did have some change in her medications recently. She was to be discontinued on carvedilol and started instead on nebivolol but there is some concern that the patient may have been taking both of the beta-blockers. She was also started on amlodipine as well recently. The patient was also noted to have hyperkalemia and was also on an antibiotic which can cause QTC prolongation. So, these all may have contributed to her complete heart block. She does also have a significant cardiac history and there was some concern that this may be secondary to acute ischemic event. Her first set of troponins were negative. However, her initial symptoms have been going on for 4 days at this point. - Cardiology has been consulted, appreciate their recommendations. Plan is for adjustment of her pacing lead under fluoroscopy as it is not currently positioned in appropriate location. - if she continues to have asystole and heart block after resolution of her electrolyte abnormalities and after reversal of her beta-blockers may need permanent pacemaker - Would continue to trend troponins and will check a brain natriuretic peptide (BNP). - Will get an echocardiogram and follow up the results. - Continue to hold her antihypertensive and beta-gabriel medications. - Would give her a dose of IV glucagon with Zofran prior in case there is a potential of beta-gabriel toxicity. - For her hyperkalemia, the patient received insulin and D50 as well as calcium gluconate in the ED. Will give her another dose of the insulin/D50 and will followup her repeat chemistry. Kayexalate was on hold. She is nothing by mouth for her pacemaker placement. The patient has acute kidney injury on top of her chronic kidney disease. Her baseline creatinine appeared to be around 1 in 2018. Suspect some of her acute kidney injury is due to episodes of hypotension from her complete heart block. - The patient was given IV fluid bolus in the ED. - Would start her on maintenance fluids with D5-1/2 normal saline (NS). - Will place a Elizabeth to monitor her ins and outs. - Will followup renal recommendations. - Will followup repeat chemistry, will also check an ABG. Hypoxemia likely due to pulmonary edema with CXR. No focal symptoms suggestive of PNA. - Continue DuoNebs and would restart her home medication with Advair while inpatient - The patient reports she had a sleep study done as an outpatient, which was reportedly positive, but she has not followed up with her midwife and birth center owner yet, which is Dr. Galdamez. Would followup the results of her sleep study. - Continue with nasal cannula oxygen supplementation to maintain oxygen saturation above 90% DVT prophylaxis. Code status: The patient was initially DO NOT RESUSCITATE, which was rescinded, and she is now FULL CODE for this hospitalization. Total critical care time spent not including procedures approximately 1 hour and 55 minutes. MTDD
[2019-05-02] MEDS ORDERED: ALBUTEROL SULFATE 2.5 MG/0.5 ML INH NEB SOLN NEB SCH (12:00)
[2019-05-02 12:07] LABS: BLOOD UREA NITROGEN 65 MG/DL (7-18); CALCIUM LEVEL 8.9 MG/DL (8.8-10.2); CARBON DIOXIDE LEVEL 19 MEQ/L (21-32); CHLORIDE LEVEL 111 MEQ/L (98-107); CREATININE FOR GFR 2.23 MG/DL (0.55-1.30); GLOMERULAR FILTRATION RATE 22.9 (>39); GLUCOSE, FASTING 217 MG/DL (70-100); MAGNESIUM LEVEL 2.7 MG/DL (1.8-2.4); NT-PRO BNP 1282 PG/ML (<125); POTASSIUM SERUM 5.6 MEQ/L (3.5-5.1); SODIUM LEVEL 138 MEQ/L (136-145); TROPONIN I < 0.02 NG/ML (< 0.10)
--- NOTE | 2019-05-02 12:20 | CR ---
DATE OF CONSULTATION: 05/02/2019 CARDIOLOGY CONSULTATION REASON FOR CONSULTATION: Pacer placement, complete heart block. The patient is a 73-year-old female who presents with a 3 to 4 day history of feeling unwell. She states that starting 4 days ago she felt like she had a sinus infection with subjective fevers, chills, nonproductive cough, stuffy nose. She went to urgent care yesterday for left sided jaw pain, as well as infection and was told that she might have a dental infection and set up an appointment with the dentist. She began taking clarithromycin that she obtained from Dr. Choi for what she presumed was a sinus infection. Earlier this morning, she began feeling dizzy, weak and was getting hot and cold sweats. At approximately 3:00 a.m. this morning she had a near syncopal episode and constant aching left jaw pain that was unrelieved with Orajel to her teeth. She got up to go to the bathroom and developed back pain between her shoulder blades and after going to the restroom she stood up and felt incredibly lightheaded, weak and almost passed out. She was found by her on the couch and he called emergency medical services (EMS), who found her to be diaphoretic with a pulse in the 20s. She was brought to the emergency department and was found to be in 3rd degree heart block. Dr. Hinton put in a temporary IJ transvenous pacer, which is currently in the right atrium. Initial lab work also revealed an elevated potassium of 7 and an elevated creatinine. She was initially treated with 12 units of insulin, amp of D50 and calcium gluconate. On seeing the patient at bedside, she currently continues to complain of left sided jaw pain, weakness, and sinus congestion. She does not complain of any chest pain, pressure. She is complaining of some mild nausea. There is no radiation of her jaw pain to her back or down her arm. She had a nuclear stress test performed on 04/22/2019, which demonstrated a gated SPECT left ventricular ejection fraction of 72% with a normal perfusion study and no ischemia or infarction noted. Wall motion study shows normal contractility, arrhythmias during stress were absent, angina with stress was absent, hemodynamic response to stress testing was normal, the EKG portion of the stress test was unchanged from baseline. The overall quality of the study was affected by attentuation of artifacts. Estimated risks for cardiac events following the scan were low. Prominent breast attentuation limits accuracy of the study. On 04/08/2019 she was seen by Dr. Perez in the office where he advised her to stop taking the carvedilol and start taking Bystolic 10 mg, continue amlodipine 10 mg, decrease Lisinopril from 20 mg to 10 mg (this was done by nephrology). In office EKG done at that time demonstrated normal sinus rhythm with moderate intraventricular conduction delay but overall unchanged from prior EKG. Of note, the patient also stated that she recently doubled the amount of over the counter potassium pill that she was taking from one to two. PAST MEDICAL HISTORY: 1. Hypertension. 2. Hyperlipidemia. 3. History of rheumatic fever at age 14. 4. Asthma. 5. Diabetes. 6. Episode of acute pancreatitis in April 2018, thought to be secondary to hydrochlorothiazide use. 7. Obesity. 8. Coronary artery disease. Nuclear stress test done in April 2013 showed left ventricular ejection fraction of 81% with normal perfusion. Spirometry done in July 2017 showed 78% FVC, 98% FEV1. Double vessel ejection fraction of 75%. 9. Chronic kidney disease stage III. 10. Prior catheterization to her right coronary artery with bare metal stent placement in June 2011. LAD mid 50 to 60% stenosis. 11. Echocardiogram in June 2011 with ejection fraction of 60 to 65%. PAST SURGICAL HISTORY: 1. Three breast biopsies, two on the left and one on the right. 2. Appendectomy. 3. Laparoscopic cholecystectomy. 4. Hysterectomy. 5. Tonsillectomy. 6. Adenoidectomy. 7. Sebaceous cyst from scalp. 8. Bilateral cataract surgery in September 2015 and October 2015. FAMILY HISTORY: Negative. SOCIAL HISTORY: The patient has never smoked. Denies alcohol use. Denies drug use. REVIEW OF SYSTEMS: See history of present illness. Negative except for what is stated in the history of present illness. PHYSICAL EXAMINATION: GENERAL: The patient is an ill-appearing female who appears stated age. She is hard of hearing, pale, and in no acute distress, overall pleasant and cooperative. She is accompanied by her and other family members. HEENT: Head is normocephalic, atraumatic. Extraocular muscles intact. No scleral icterus. Mucous membranes are mildly dry. She does have left sided tenderness to palpation at the angle of the mandible. She does have what appear to be cavities inside the mouth but these also may be metal replacements according to her family, she has an extensive history of cavities in the past, last seen by a dentist one year ago. NECK: There is no jugular venous distention (JVD) appreciated. Transvenous pacer in place on the right side of the neck. CARDIOVASCULAR: Bradycardic rate, irregular rhythm. Normal S1, S2. No murmurs or rubs appreciated on auscultation. RESPIRATORY: Clear to auscultation bilaterally with mild crackles in bilateral lower lung mccarthy. No wheezes or rhonchi appreciated on examination. ABDOMEN: Soft, nontender, nondistended. Bowel sounds present. EXTREMITIES: 2+ peripheral pulses in bilateral upper extremities and lower extremities. Dorsal pedis and radial artery pulses. No peripheral edema appreciated in bilateral upper or lower extremities. NEUROLOGIC: No focal neuro deficits. LABORATORIES: White blood cell count 10.5, hemoglobin 10.5, hematocrit 33.8, platelet count of 346. Chemistry: Sodium 136, potassium 6.2, chloride 111, CO2 of 17, BUN 66, creatinine 2.37, GFR 21.3, glucose 266, calcium of 8.5, AST 44, ALT 35, alkaline phosphatase 43, troponin less than 0.02, albumin 3, lipase of 334. Coags: PT 14.1, INR 1.12. ABG showing pH of 7.36, pCO2 of 31.3, pO2 of 85.1. IMAGING: Chest x-ray showed diffuse bilateral interstitial infiltrates, pacemaker in right atrium, supine position precludes evaluation for pneumothorax. ASSESSMENT AND PLAN: 1. Complete heart block. This is likely secondary to the elevated potassium, the possibility that she was taking two beta blockers at once, and the kidney injury. We have consulted Dr. Remy for movement of the right atrial pacer into the right ventricle, he has agreed to do this today. We also ordered a STAT echocardiogram, which was reviewed by Dr. Morrison at bedside and showed trace mitral and aortic regurgitation, mild pulmonary hypertension and a normal ejection fraction of 65 to 70%. It does not show any signs of cardiomyopathy and does not appear very much changed from other imaging in the past. This means we will likely not have to transfer the patient to [place]. We also ordered a BNP; however, given the patient's renal injury and heart failure, we suspect that this will likely be elevated. We are also recommending holding her potassium supplementation, her beta blockers, her GEORGIANA inhibitor and her spironolactone for the time being while her kidneys and heart have time to recover. It is okay to continue the aspirin from our standpoint. She also will need a nephrology consultation for management of her kidney injury since she follows with Dr. Doty outpatient. Her last creatinine level in March showed a baseline creatinine of 1.16 and a potassium of 4.57, that was in March 2019. Her lipid panel from February 2019 showed a cholesterol of 185, LDL of 85, HDL of 26 and triglycerides of 368. We will continue to follow along with this patient. We will continue her medical management after she has been evaluated by Dr. Remy. After clarification with the patient's family, she is a FULL CODE. My faculty preceptor for this patient encounter was physically present during the encounter and was fully available. All aspects of the patient interview, examination, medical decision making process, and medical care plan development were reviewed and approved by the faculty preceptor. The faculty preceptor is aware and concurs with the plan as stated in the body of this note and will attest to such by his/her co-signature. KIM
[2019-05-02] MEDS: D5W/0.9% SODIUM CHLORIDE 1,000 ML IV SCH (13:02)
[2019-05-02] MEDS: HumaLOG INSULIN (NovoLOG) PER UNIT SC SCH ×3 (13:02→23:11)
[2019-05-02] MEDS: PERCOCET 5MG/325MG TAB PO PRN ×2 (15:51→20:01)
--- NOTE | 2019-05-02 16:11 | RO ---
DATE OF PROCEDURE: 05/02/2019 PREPROCEDURE DIAGNOSIS: Temporary transvenous pacemaker in the right atrial lead. POSTPROCEDURE DIAGNOSIS: Temporary transvenous pacemaker in the right atrial lead. FINDINGS: Temporary transvenous pacemaker in the right atrial lead. PROCEDURE: Fluoroscopy/repositioning of temporary pacemaker lead. SURGEON: Dr. Enzo Remy ELECTROMEDICAL EQUIPMENT REPAIRER: None. ANESTHESIA: INDICATIONS: I was requested by Dr. Noel Morrison to reposition the patient's temporary transvenous pacemaker lead, which was in the right atrium and reposition into the right ventricle. Informed consent was signed by the patient's healthcare proxy. DESCRIPTION OF PROCEDURE: The patient was brought to the fluoroscopy suite in the radiology department. Transthoracic pacing with the transthoracic pacing patches was successful with a palpable pulse. The transthoracic pacing was performed for a short time during repositioning of the transvenous pacing lead. The procedure was performed by Dr. Remy (no assistant passenger locomotive engineer). Fluoroscopy pedal was operated by Dr. Remy. The temporary pacemaker lead was successfully repositioned by Dr. Remy using 1 mL of air to inflate and deflate the balloon at the tip of the temporary pacemaker as needed and used to advance the temporary pacemaker lead into the right ventricle. The balloon was then deflated, and the pacemaker lead was advanced to the vicinity of the right ventricle apex and some additional slack was added. Because the patient was pacemaker dependent with no underlying electrical activity, sensing of the right ventricle lead could not be obtained. The capture threshold at the end of the positioning procedure was 2.0 volts (no capture at 1 volt). Pacemaker was set to 70 beats per minute. A final fluoroscopic picture was obtained to document the final position of the transvenous pacing lead.
[2019-05-02] MEDS ORDERED: GABAPENTIN 100 MG CAP PO ONE (17:00)
--- NOTE | 2019-05-02 19:45 | ECGEPIP ---
[facility] - ED Test Date: 2019-05-02 Pat Name: RACHEL DOHERTY Department: Room: [place] [address] Gender: Female Staff Auditor: rodger : 1945 Requested By: Edd Toussaint Order Number: [id number] Reading MD: Cain Hinton Measurements Intervals Pound Rate: 69 P: 9 VA: 274 QRS: 18 QRSD: 92 T: 29 QT: 391 QTc: 419 Interpretive Statements INCOMPLETE ATRIAL PACEMAKER CAPTURE UNDERLYING 3RD DEGREE AV BLOCK Electronically Signed on 05-02-2019 19:45:34 EDT by Cain Hinton
[2019-05-02 21:08] LABS: CREATININE FOR GFR 1.98 MG/DL (0.55-1.30); GLOMERULAR FILTRATION RATE 26.2 (>39); POTASSIUM SERUM 5.1 MEQ/L (3.5-5.1)
[2019-05-02] MEDS: ALPRAZolam 0.25 MG TAB PO PRN (21:42)
[2019-05-02] MEDS ORDERED: HYDROCORTISONE 1% CREAM 30 GM TOP PRN (22:15)
[2019-05-03] VITALS (20 sets, daily range): BP systolic 96–164; BP diastolic 47–94
[2019-05-03] MEDS: D5W/0.9% SODIUM CHLORIDE 1,000 ML IV SCH ×2 (01:44→16:25)
[2019-05-03] MEDS: PERCOCET 5MG/325MG TAB PO PRN ×2 (03:44→10:15)
[2019-05-03 04:11] LABS: HEMATOCRIT 31.1 % (36.0-47.0); HEMOGLOBIN 9.7 g/dl (12.0-15.5); MEAN CORPUSCULAR HEMOGLOBIN 30.5 pg (27.0-33.0); MEAN CORPUSCULAR HGB CONC 31.2 g/dl (32.0-36.5); MEAN CORPUSCULAR VOLUME 97.8 fl (80.0-96.0); PLATELET COUNT, AUTOMATED 337 10^3/uL (150-450); RED BLOOD COUNT 3.18 10^6/uL (4.00-5.40); WHITE BLOOD COUNT 8.9 10^3/uL (4.0-10.0)
[2019-05-03 04:36] LABS: CALCIUM LEVEL 8.4 MG/DL (8.8-10.2); CREATININE FOR GFR 2.08 MG/DL (0.55-1.30); GLOMERULAR FILTRATION RATE 24.8 (>39); POTASSIUM SERUM 5.6 MEQ/L (3.5-5.1)
[2019-05-03 05:25] LABS: ABG HCO3 16.9 MEQ/L (22.0-26.0); ABG O2 SATURATION 99.1 % (95.0-99.0); ABG PARTIAL PRESSURE CO2 32.6 mmHg (35.0-45.0); ABG PARTIAL PRESSURE O2 161.8 mmHg (75.0-100.0); ABG TOTAL CO2 17.9 MEQ/L (23.0-31.0); ABG pH (ARTERIAL) 7.333 UNITS (7.350-7.450)
[2019-05-03] MEDS: HumaLOG INSULIN (NovoLOG) PER UNIT SC SCH ×4 (06:00→23:21)
--- NOTE | 2019-05-03 07:47 | CR ---
DATE OF CONSULTATION: 05/02/2019 REQUESTING PHYSICIAN: Lisa Montana MD CONSULTING PHYSICIAN: Swapna Doty MD REASON FOR CONSULTATION: Management of acute renal failure and hyperkalemia. CHIEF COMPLAINT: The patient was brought to the emergency room by Emergency Medical Service (EMS). She was found unresponsive at home. HISTORY OF PRESENT ILLNESS: Eunice Mejias is a 73 years of female with past medical history of chronic kidney disease stage III. She has a baseline creatinine of 1.2 to 1.3. She follows up with myself in nephrology clinic; last visit was about one month ago; and at that time, her creatinine was 1.2. She also follows up with cardiology and pulmonary clinic. Other significant past medical history includes diabetes mellitus type 2, hypertension, coronary artery disease, chronic obstructive pulmonary disease (COPD) and other comorbidities are mentioned below. The patient was feeling weak, tired, was having chills and diaphoresis, left-sided jaw pain, which was radiating to the left arm. She was given macrolide antibiotics possibly clarithromycin as outpatient that did not improve her symptoms of jaw pain. She also had pain in the shoulder blades. All of her vague symptoms could not be diagnosed. Her symptoms later on got worse and she was found unresponsive by at home. He called the Emergency Medical Service (EMS). When EMS arrived, the patient was found to have bradycardia, diaphoresis. Her pulse was in 20s. She was found to be in third-degree heart block. On arrival in the emergency room, she got transcutaneous pacemaker placed. She was given IV fluid hydration. The patient was transferred to intensive care unit (ICU). Initial lab review done on arrival showed the patient was in acute renal failure with a potassium of 7.1 and creatinine of 2.4. She had negative troponin. Nephrology service was called for further help in the management of this patient with acute renal failure and hyperkalemia. The patient was already discussed by myself, with the admitting physician yesterday. Decision was made to hydrate the patient and give the patient a dose of Kayexalate. She was already given insulin and D50 and calcium gluconate in the emergency room. Of note, the patient was recently seen in cardiology clinic. She reports that she was started on Bystolic 10 mg by mouth daily. She reports that she was asked to stop Coreg; although when I saw her in the clinic, her beta blockers were already stopped. The patient was also taking OTC Mg supplement. I saw and evaluated the patient today morning in the ICU at the bedside. She had the transvenous pacer, which is very positional in nature. However, she reports that she is feeling slightly better today as compared with yesterday. She was starting to make urine and her potassium was improving. Latest potassium in the morning was 6.2. PAST MEDICAL HISTORY: Past medical history of chronic kidney disease stage III baseline creatinine of 1.2, hypertension, diabetes mellitus type 2 diet controlled, transient ischemic attack (TIA), coronary artery disease, history of stent placement, chronic obstructive pulmonary disease (COPD), history of pancreatitis in 2018, peripheral neuropathy, asthma, hyperlipidemia, chronic gout secondary to chronic kidney disease. PAST SURGICAL HISTORY: History of cardiac stent placed in 2010, status post bilateral cataract surgery, status post hysterectomy, history of breast biopsy, status post cholecystectomy. ALLERGIES: The patient is allergic to CLINDAMYCIN, MORPHINE, NITROGLYCERIN and ANESTHESIA. FAMILY HISTORY: No significant family history of end-stage renal disease requiring hemodialysis. Her father had [place] chorea and mother had myocardial infarction ([place]). SOCIAL HISTORY: The patient lives at home with her . She denies any smoking, illicit drug abuse or alcohol abuse. REVIEW OF SYSTEMS: CONSTITUTIONAL: The patient reports feeling very weak and tired. EYES: She denies any blurry vision and does not have double vision. ENT: She denies any dysphagia, odynophagia. CARDIOVASCULAR: She came in with third degree heart block. RESPIRATORY: She had shortness of breath yesterday. She denies any shortness of breath at this time. GI: She had nausea and decreased appetite, but she denies any nausea at this time. GENITOURINARY: She denies any dysuria or hematuria. She has an indwelling Elizabeth catheter at this time. MUSCULOSKELETAL: She had muscle aches and pains on arrival. PAPER BAG MACHINE OPERATOR: The patient came in after a syncope. SKIN: She denies any rashes or ulcers. ENDOCRINE: She reports history of diabetes mellitus type 2. HEMATOLOGY/ONCOLOGY: She denies any easy bleeding or bruising. All other review of systems is negative. PHYSICAL EXAMINATION: General: The patient is awake, alert, oriented x3, laying in bed, mild painful distress. Vital signs: When I saw the patient in the morning, her temperature was 96.7 degrees Fahrenheit, blood pressure (BP) 121/94, pulse of 67, respiratory rate of 16, saturating 94% on 6 liters via nasal cannula. Head and neck exam: Extraocular muscles intact. Pupils equally round and reactive to light. Mucous membranes are moist. Neck is supple. She has a right internal jugular transvenous pacemaker. Cardiovascular: S1, S2, pulse rate is in 60s to 70s. No edema of the bilateral lower extremities. Respiratory: Mildly decreased breath sounds at the bases. No active rales or rhonchi. Abdomen: Soft, obese, positive bowel sounds. Nontender. Genitourinary: She has an indwelling Elizabeth catheter. Urine in the bag is clear. Musculoskeletal: No clubbing or cyanosis. Pulses are 2+. PAPER BAG MACHINE OPERATOR: No focal deficit. Power is 5/5 in bilateral upper extremities. LABORATORY REVIEW: CBC showed WBC of 10.5, hemoglobin 10.5, platelets of 346. INR is 1.12. ABG showed pH of 7.36, pCO2 31, pO2 85, bicarbonate 17, oxygen saturation 96%. BMP showed sodium 136, potassium 7.1, chloride 110, bicarbonate 16, BUN 63, creatinine 2.4, calcium 8.6, albumin 3, lipase 334. Repeat BMP done today morning showed sodium 138, potassium 5.6, chloride 111, bicarbonate 19, BUN 65, creatinine 2.2, magnesium 2.7, Pro-BNP 1282 IMAGING STUDIES: A chest x-ray was done today morning which showed diffuse bilateral interstitial infiltrates and the presence of pacemaker. CURRENT INPATIENT MEDICATIONS: The patient got a dose of calcium gluconate early in the morning. She was on D5W. I have changed the fluid to D5 normal saline at 75 mL an hour. She is getting IV famotidine. The patient was also given DuoNebs overnight. She is getting Xanax as needed for anxiety. The patient is on Lovenox 40 mg subcutaneous daily, insulin sliding scale, Zofran as needed. Percocet as needed for pain. She was given a dose of Kayexalate 30 grams by mouth times dose. Home medications according to our clinic record last month: - allopurinol 300 mg daily - amlodipine 10 mg daily - aspirin 81 mg daily - Breo Ellipta 100/20, 5 mcg - Claritin 5 mg daily - iron tablet 324 mg daily - furosemide 40 mg daily - glimepiride 1 mg daily - lisinopril 10 mg daily - magnesium oxide 400 mg - metformin 500 mg - ProAir as needed - ranitidine 150 mg daily - spironolactone 25 mg daily - stool softener - Tricor 145 mg by mouth daily - Xanax as needed - Zetia 10 mg daily. Home medications according to the patient's list: The patient brought her own list of medications; and according to her list, she was fenofibrate 145 mg daily, allopurinol 300 mg daily, Breo Ellipta, ProAir magnesium oxide 400 1 tablet twice a day and Xanax 0.25 mg by mouth as needed, lisinopril 10 mg daily, glimepiride 1 mg daily, Lasix 40 mg daily, spironolactone 25 mg daily, alpha lipoic acid once a day, tablet daily, aspirin 81 tablet 10 mm 1 tablet daily , Claritin once a day. She is on amlodipine 10 mg daily Stool softener as needed. She was also Bystolic 10 mg at night. ASSESSMENT: 73-year-old female with history of chronic kidney disease stage III, hypertension, diabetes mellitus type 2, admitted at this time with complete heart block, acute renal failure and hyperkalemia. PLAN: 1. Complete heart block. It is multifactorial at this time. The patient was getting Bystolic at home. He was also given macrolide which can cause QT prolongation. The patient was also hyperkalemic on arrival, which might be a result of third degree heart block causing renal failure. The patient has a transvenous pacemaker. She is going to the operating room for repositioning of the pacemaker by cardiology under fluoroscopic guidance; and depending upon the patient's response and after improvement of the renal function, the decision will be made whether the patient needs a pacemaker or not 2. Acute renal failure. The patient's baseline creatinine was 1.2 one month ago. She presented with a creatinine of 2.4. She came in with pulse rate in 20s which cause acute renal failure, probably it was going on for few days given her symptoms of weakness and chills and chest pain and jaw pain. The patient was also receiving lisinopril 10 mg daily at home along with diuretics including Lasix and spironolactone, all of the medications to gather along with third-degree heart block has cause renal failure. However, the primary cause still is third degree heart block. At this point, all the diuretics and GEORGIANA inhibitors and beta blockers are on hold. The patient is being hydrated with D5W. I have changed the IV fluids to D5 normal saline at 75 mL an hour. The patient's renal function is expected to improve over the next 24-48 hours. Her urine output is getting better. Continue to monitor intake and output. 3. Hyperkalemia. It is secondary to acute renal failure induced by third degree heart block and use of spironolactone and lisinopril. She initially reported use of Potassium chloride but later on told us it was OTC Mg. However, with improvement in the urine output, the patient's kaliuresis would improve. Continued D5 normal saline delivery of the sodium to the distal nephron would help improve the potassium levels. 4. Normal anion gap metabolic acidosis. It is secondary to acute renal failure. No need of IV bicarbonate administration at this time. The patient's bicarb level is expected to improve slowly with improvement in the renal function. 5. Chronic gout secondary to chronic kidney disease. Allopurinol can be held at this time. 6. Diabetes mellitus type 2. The patient was taking glimepiride and metformin at home. Avoid further use of metformin in acute renal failure at this time. Sulfonylurea e and he has also on hold because the patient is nothing by mouth. She is getting D5W.Continue insulin sliding scale as needed. 7. Coronary artery disease status post stent. The patient's home aspirin can be restarted. Lisinopril is on hold because of acute renal failure. She is not a candidate for beta blockers because of third degree heart block. She cannot use Tricor at this time because of acute renal failure. 8. Chronic obstructive pulmonary disease (COPD). Continue home dose of ProAir and Breo Ellipta. She can get a DuoNeb nebulizations as needed while in the hospital. Thank you for involving me in the care of this patient. I shall be happy to follow the patient along with you tomorrow morning. Total critical care time spent in the management of this patient today morning in the ICU was one hour. Excluding procedures. MTDD
--- NOTE | 2019-05-03 08:25 | REP ---
C-ARM VIEW CHEST: C-ARM view of the chest is performed. There is a single lead pacemaker with the tip in the region of the right ventricle. 1.2 minutes of fluoroscopy time was utilized. Electronically Signed by Jesus Case MD 05/03/2019 05:04 P
[2019-05-03] MEDS: IPRATROPIUM 0.5MG/ALBUTEROL 2.5MG INH SOL UD 3ML (DUONEB)(J7620) NEB SCH ×5 (08:28→20:49)
[2019-05-03] MEDS: CHLORHEXIDINE GLUCONATE 0.12 % 15ML UDC (PERIDEX ORAL RINSE) MT SCH ×2 (09:28→19:40)
[2019-05-03] MEDS: ENOXAPARIN 40 MG/0.4 ML SYRINGE (J1650) SC SCH (09:29)
--- NOTE | 2019-05-03 10:41 | REP ---
Portable chest, 10:22 a.m., single AP view with the patient semi upright: Comparison is 05/02/2019. The bilateral interstitial infiltrates have improved. There are no pleural effusions. Cardiac size is upper normal, unchanged. Right IJ pacemaker is changed. There is no pneumothorax or pleural fluid collection. Impression: The diffuse bilateral infiltrates have improved. Electronically Signed by Jesus Kunz MD 05/03/2019 10:32 A
--- NOTE | 2019-05-03 10:55 | CCN ---
DATE OF SERVICE: 05/03/2019 The patient was seen and examined this morning. She reports that her left jaw pain had reoccurred yesterday. She was given Percocet with some improvement in her pain symptoms, but it is still there, especially with clenching her jaw. She also reported pain with the chlorhexidine mouthwash in her left jaw. The patient is concerned that she has possibly an infected tooth there. She has not had any further episodes of back pain. No chest pain. She denies any increased shortness of breath. No lightheadedness or dizziness. PHYSICAL EXAMINATION: Temperature 97.2, pulse is 72, respirations 19, blood pressure 116/56, oxygen (O2) saturation 98% on 3 liters per minute. In 650, out 875 mL. General: The patient is an elderly female. Is awake, alert, and responsive, and not in any acute distress. HEENT: Normocephalic, atraumatic. Pupils are equal, reactive to light bilaterally. Mucous membranes are moist. She has a temporary transvenous pacer in her right internal jugular (vein) (IJ). Cardiovascular: Regular rate and rhythm. Normal S1, S2. No murmurs appreciated. Pulmonary: Diminished breath sounds bilaterally with some crackles at the bases. No wheezing or rhonchi. Abdomen is soft, obese, nontender, nondistended. Lower extremities: There is no lower extremity edema noted bilaterally. LABORATORIES: WBC 8.9, hemoglobin 9.7, platelets 337. Chemistry: Sodium 141, potassium 5.6, chloride 115, bicarbonate 20, BUN 55, creatinine 2.08, glucose is 125. ASSESSMENT AND PLAN: Ms. Mejias is a 73-year female with a past medical history of hypertension, hyperlipidemia, asthma, chronic kidney disease, coronary artery disease (CAD), who presented with complaints of back pain, lightheadedness, dizziness, and left jaw pain. The patient was found to have symptomatic bradycardia with a third-degree AV block on admission. She had a transvenous pacer placed in the emergency department (ED) with approximately 50% capture, as the lead was in the right atrium. She was transferred to the intensive care unit (ICU) for further management. The patient was also found to have hypoxemic respiratory failure requiring nasal cannula oxygen supplementation, likely secondary to pulmonary edema from her bradycardia and decreased cardiac output. The patient was also found to have acute on chronic renal failure with significant hyperkalemia. Appreciate cardiology followup and recommendations. Her pacing lead was adjusted under fluoroscopy yesterday with the tip noted to be in the right ventricle on fluoroscopy. She appears to have appropriate capture currently. -Will followup cardiology recommendations. She continues to have some hyperkalemia, but it is not severe at this time. There was still some concern that she may have had beta-gabriel toxicity contributing to her asystole and heart block with decreased renal excretion given her acute worsening renal failure. She was given glucagon yesterday for the beta-gabriel toxicity. - If the patient continues to have heart block despite improvement in her renal function, she may need a permanent pacemaker at that time. - There was some concern for acute ischemic event. However, her troponins were negative. Her echocardiogram also did not show any significant wall motion abnormalities. - Hypoxemia likely due to pulmonary edema from decreased cardiac output with her symptomatic bradycardia. It is improving with improvement in her bradycardia and she was able to be decreased to 3L/min NC. will followup a repeat chest x-ray today and cont to wean down as tolerated to maintain O2 sat above 90% - The patient does continue to desaturate while on nasal cannula oxygen when sleeping. She reportedly had a sleep study done as outpatient which was positive, but she has not followed up for titration study for her continuous positive airway pressure (CPAP) machine yet. The patient will need followup as an outpatient and titration for her sleep apnea. - The patient has acute kidney injury on top of her chronic kidney disease. The patient likely with acute kidney injury due to hypotension and decreased perfusion from her bradycardia and potentiated by GEORGIANA-I. She has been on normal saline with good urine output. Her creatinine is slowly improving. The patient does continue to have some hyperkalemia, although this has improved and is not in the severe state as it was on admission. Would followup with renal recommendations for her electrolytes and in terms of her fluids and possible diuresis. She is becoming more hyperchloremic, which may require adjustments of her fluids. Deep venous thrombosis (DVT) prophylaxis. CODE STATUS: FULL CODE now. TOTAL CRITICAL CARE TIME SPENT: Not including any procedures, approximately 35 minutes. Please not hesitate call if any further questions or concerns MTDD
[2019-05-03] MEDS ORDERED: FUROSEMIDE 40 MG/4 ML VIAL (J1940) IV ONE (11:30)
--- NOTE | 2019-05-03 11:54 | IPNPDOC ---
Subjective Date Seen The patient was seen on 05/03/19. Subjective Chief Complaint/HPI Patient seen and examined at the bedside. States that she is feeling relatively better overall. However, continues to complain of some intermittent left jaw pain. Ischemic Cardiac workup has been negative thus far. Denies any complaints of chest pain. She remains with a paced rhythm. Objective Physical Examination General Exam: Positive: Alert, Cooperative, No Acute Distress ENT Exam: Positive: Atraumatic, Mucous membr. moist/pink Neck Exam: Positive: Other (no JVD, no adenopathy; right IJ transvenous pacemaker present) Chest Exam: Positive: Diminished; Negative: Rales, Rhonchi, Wheezing Heart Exam: Positive: Other (paced rhythm noted on telemetry) Telemetry: Positive: Sinus Abdomen Exam: Positive: Soft; Negative: Tenderness Extremity Exam: Negative: Tenderness Psych Exam: Positive: Mental status NL, Mood NL, Oriented x 3 Assessment /Plan Plan/VTE VTE Prophylaxis Ordered?: Yes Plan Complete heart block Originally thought to be secondary beta blockade vs hyperkalemia from worsening renal insufficiency s/p Transvenous temporary pacer placement on 05/02 ECHO did not reveal any acute cardiomyopathy or wall motion abnormalities, and troponins have remained flat Dr. Morrison/Dr. Fleming of Cardiology on board to determine need for permanent pacem jerald placement We will continue to monitor BIANCA superimposed on CKD III Nephrotoxins held Nephrology on board Hyperkalemia secondary to above Improved overall, we will continue to monitor Non-anion gap metabolic acidosis Likely secondary to underlying renal insufficiency May benefit from sodium bicarbonate if this worsens, we will follow-up with nephrology recommendations Diabetes Oral hypoglycemics held The patient's blood sugar levels have been borderline normal We will hold insulin sliding scale for now CAD with 1 stent The patient does not appear to have any acute ischemic sequelae at this time COPD without exacerbation Continue nebs as ordered The patient is currently on 2 L of oxygen via nasal cannula, likely secondary to volume decompensation from underlying bradycardia on admission Patient given a dose of Lasix this morning Nocturnal hypoxia - probable TETO Follow-up with pulmonary GERD PO Pepcid DVT prophylaxis Heparin subcutaneous VS, I&O, 24H, Fishbone Vital Signs/I&O Vital Signs Date Time Temp Pulse Resp B/P (MAP) Pulse Ox O2 Delivery O2 Flow Rate FiO2 05/03/19 11:00 72 115/54 (74) 93 2.0 05/03/19 10:45 18 05/03/19 08:02 97.7 05/03/19 03:44 97 05/02/19 06:48 Room Air I&O- Last 24 Hours up to 6 AM 05/03/19 06:00 Intake Total 1100 ml Output Total 1080 ml Balance 20 ml Laboratory Data 24H LABS Laboratory Tests 2 05/02/19 15:13: Troponin I 0.02 05/02/19 17:19: Troponin I 0.03# 05/02/19 18:01: Bedside Glucose (Misc Panel) 85 05/02/19 20:45: Anion Gap 7L, Glomerular Filtration Rate 26.2L, Blood Urea Nitrogen 58H, Creatinine 1.98H, Sodium Level 141, Potassium Level 5.1, Chloride Level 114H, Carbon Dioxide Level 20L, Calcium Level 9.0 05/02/19 22:56: Bedside Glucose (Misc Panel) 112H 05/03/19 03:57: Nucleated Red Blood Cells % (auto) 0.0, Anion Gap 6L, Glomerular Filtration Rate 24.8L, Blood Urea Nitrogen 55H, Creatinine 2.08H, Sodium Level 141, Potassium Level 5.6H, Chloride Level 115H, Carbon Dioxide Level 20L, Calcium Level 8.4L 05/03/19 05:19: Blood Gas Bicarbonate Standard 18.0L, Arterial Blood pH 7.333L, Arterial Blood Partial Pressure CO2 32.6L, Arterial Blood Partial Pressure O2 161.8H, Arterial Blood Total CO2 17.9L, Arterial Blood HCO3 16.9L, Arterial Blood Base Excess - 8.0L, Arterial Blood Oxygen Saturation 99.1H 05/03/19 05:57: Bedside Glucose (Misc Panel) 101 CBC/BMP Laboratory Tests 05/02/19 20:45 Calcium Level 9.0 05/03/19 03:57 Calcium Level 8.4 L, Red Blood Count 3.18 L, Mean Corpuscular Volume 97.8 H, Mean Corpuscular Hemoglobin 30.5, Mean Corpuscular Hemoglobin Concent 31.2 L, Red Cell Distribution Width 14.0 CARITO JOSEPH MD May 03, 2019 11:54
--- NOTE | 2019-05-03 13:34 | ECHO ---
DATE OF STUDY: 05/02/2019 DATE OF : 1945 AGE: 73 REFERRING PROVIDER: Dr. Lisa Montana PATIENT LOCATION: Room 3210 REASON FOR ECHOCARDIOGRAM: Abnormal EKG, complete heart block. 2D MEASUREMENTS: IVS 1.1 cm LV 4.1 cm LVPW 1.1 cm LA 3.8 cm Aorta 3.3 cm IVC 2.2 cm DOPPLER MEASUREMENTS: Peak velocity across the aortic valve 1.1 m/s Peak velocity across the LVOT 0.89 m/s Maximum tricuspid valve velocity 2.7 m/s 2D COMMENTS: 1. Normal left ventricular size, wall thickness, and normal global left ventricular systolic function. The estimated left ventricular systolic ejection fraction (LVEF) 60-65%. 2. Normal left atrium. Normal right atrium and right ventricle. 3. The atrial septum appeared to be normal without evidence of defect or shunt. 4. Normal aortic root. 5. No pericardial effusion seen. 6. The aortic valve, mitral valve and tricuspid valve appeared to be normal. The pulmonic valve and proximal pulmonary artery branches were not well visualized. 7. The inferior vena cava was mildly enlarged, central venous pressure might be elevated. DOPPLER: It detects trace aortic regurgitation, trace mitral regurgitation, and mild tricuspid regurgitation. The calculated pulmonary artery systolic pressure varies between 30-40 mmHg. Abnormal relaxation pattern was noted across the mitral valve leaflets consistent with features of grade 1 left ventricular diastolic dysfunction. IMPRESSION: 1. Normal global left ventricular systolic function. There are some features of left ventricular diastolic dysfunction manifested by abnormal relaxation. 2. Trace aortic regurgitation. 3. Trace mitral regurgitation. 4. Mild tricuspid regurgitation with mild pulmonary hypertension. 5. The inferior vena cava was mildly enlarged, central venous pressure might be elevated. MTDD
[2019-05-03 14:41] LABS: ALBUMIN 2.9 GM/DL (3.2-5.2); CALCIUM LEVEL 9.2 MG/DL (8.8-10.2); CREATININE FOR GFR 2.05 MG/DL (0.55-1.30); GLOMERULAR FILTRATION RATE 25.2 (>39); PHOSPHORUS LEVEL 3.7 MG/DL (2.5-4.9); POTASSIUM SERUM 5.4 MEQ/L (3.5-5.1)
[2019-05-03] MEDS: FAMOTIDINE 20 MG TAB PO SCH (16:25)
[2019-05-03] MEDS ORDERED: SOD POLYSTYRENE SULFONATE SUSP 15 GM/60 ML UD PO ONE (17:00)
[2019-05-03] MEDS: ALPRAZolam 0.25 MG TAB PO PRN (19:40)
[2019-05-03] MEDS: FLUTICASONE PROP 0.05% NASAL SPRAY 16 GM (FLONASE) NARES SCH ×2 (19:40→19:48)
[2019-05-03] MEDS ORDERED: ALPRAZolam 0.25 MG TAB PO ONE (22:00)
[2019-05-03] MEDS ORDERED: D5W/0.45% SODIUM CHLORIDE 1,000 ML IV SCH (22:00)
[2019-05-04] VITALS (13 sets, daily range): BP systolic 120–189; BP diastolic 58–85
[2019-05-04] MEDS: PERCOCET 5MG/325MG TAB PO PRN ×2 (03:00→12:47)
[2019-05-04 05:16] LABS: HEMATOCRIT 29.4 % (36.0-47.0); HEMOGLOBIN 9.2 g/dl (12.0-15.5); MEAN CORPUSCULAR HEMOGLOBIN 30.6 pg (27.0-33.0); MEAN CORPUSCULAR HGB CONC 31.3 g/dl (32.0-36.5); MEAN CORPUSCULAR VOLUME 97.7 fl (80.0-96.0); PLATELET COUNT, AUTOMATED 299 10^3/uL (150-450); RED BLOOD COUNT 3.01 10^6/uL (4.00-5.40)
[2019-05-04 05:34] LABS: ALBUMIN 2.6 GM/DL (3.2-5.2); CALCIUM LEVEL 8.1 MG/DL (8.8-10.2); CREATININE FOR GFR 1.65 MG/DL (0.55-1.30); GLOMERULAR FILTRATION RATE 32.4 (>39); PHOSPHORUS LEVEL 3.7 MG/DL (2.5-4.9); POTASSIUM SERUM 4.9 MEQ/L (3.5-5.1)
[2019-05-04 05:38] LABS: ABG BASE EXCESS -3.7 (-2.0-2.0); ABG HCO3 20.5 MEQ/L (22.0-26.0); ABG PARTIAL PRESSURE CO2 34.1 mmHg (35.0-45.0); ABG PARTIAL PRESSURE O2 173.4 mmHg (75.0-100.0); ABG STANDARD HCO3 21.4 MEQ/L (22.0-26.0); ABG TOTAL CO2 21.6 MEQ/L (23.0-31.0); ABG pH (ARTERIAL) 7.397 UNITS (7.350-7.450)
[2019-05-04] MEDS: HumaLOG INSULIN (NovoLOG) PER UNIT SC SCH ×4 (06:02→20:50)
[2019-05-04] MEDS: IPRATROPIUM 0.5MG/ALBUTEROL 2.5MG INH SOL UD 3ML (DUONEB)(J7620) NEB SCH ×4 (07:27→20:15)
[2019-05-04] MEDS: CHLORHEXIDINE GLUCONATE 0.12 % 15ML UDC (PERIDEX ORAL RINSE) MT SCH ×2 (09:26→20:37)
[2019-05-04] MEDS: ALPRAZolam 0.25 MG TAB PO SCH ×4 (09:26→21:04)
[2019-05-04] MEDS: FAMOTIDINE 20 MG TAB PO SCH (09:26)
[2019-05-04] MEDS: FLUTICASONE PROP 0.05% NASAL SPRAY 16 GM (FLONASE) NARES SCH ×2 (09:27→21:00)
[2019-05-04] MEDS: HEPARIN SOD (PORCINE) 5000 UNITS/ML VIAL SQ SCH ×2 (09:27→17:12)
[2019-05-04] MEDS ORDERED: FUROSEMIDE 40 MG/4 ML VIAL (J1940) IV ONE (10:15)
--- NOTE | 2019-05-04 11:01 | IPNPDOC ---
Subjective Date Seen The patient was seen on 05/04/19. Subjective Chief Complaint/HPI Patient seen and examined at the bedside. Reports that she is feeling better today. Her heart rate also appears to be improved, and is no longer requiring pacing via the temporary pacemaker. Objective Physical Examination General Exam: Positive: Alert, Cooperative, No Acute Distress ENT Exam: Positive: Atraumatic, Mucous membr. moist/pink Neck Exam: Positive: Other (no JVD, no adenopathy; right IJ transvenous pacemaker present) Chest Exam: Positive: Diminished; Negative: Rales, Rhonchi, Wheezing Heart Exam: Positive: Rate Normal, Normal S1, Normal S2 Telemetry: Positive: Sinus Abdomen Exam: Positive: Soft; Negative: Tenderness Extremity Exam: Negative: Tenderness Psych Exam: Positive: Mental status NL, Mood NL, Oriented x 3 Assessment /Plan Plan/VTE VTE Prophylaxis Ordered?: Yes Plan Complete heart block possibly 2/2 Beta Blockers Originally thought to be secondary beta blockade vs hyperkalemia from worsening renal insufficiency s/p Transvenous temporary pacer placement on 05/02 ECHO did not reveal any acute cardiomyopathy or wall motion abnormalities, and troponins have remained flat Patient's heart rate has improved and she has been doing well with her pacemaker HR settings turned down, and has not required pacing Dr. Morrison/Dr. Remy of Cardiology on board We will continue to monitor BIANCA superimposed on CKD III Nephrotoxins held Serum Cr improving Nephrology on board Hyperkalemia secondary to above Serum K within normal limits now Non-anion gap metabolic acidosis Likely secondary to underlying renal insufficiency Improved Diabetes ISS ordered CAD with 1 stent The patient does not appear to have any acute ischemic sequelae at this time COPD without exacerbation Continue nebs as ordered The patient is currently on 1L of oxygen via nasal cannula, likely secondary to volume decompensation from underlying bradycardia on admission Patient given another dose of Lasix this morning Acute pulmonary edema secondary to heart block Improved with IV Lasix Nocturnal hypoxia - probable TETO Follow-up with pulmonary GERD PO Pepcid DVT prophylaxis Heparin subcutaneous VS, I&O, 24H, Fishbone Vital Signs/I&O Vital Signs Date Time Temp Pulse Resp B/P (MAP) Pulse Ox O2 Delivery O2 Flow Rate FiO2 05/04/19 10:00 75 18 189/79 (115) 93 05/04/19 08:00 2.0 05/04/19 08:00 98.5 05/03/19 03:44 97 7/22/19 06:48 Room Air I&O- Last 24 Hours up to 6 AM 05/04/19 05:59 Intake Total 900 ml Output Total 2585 ml Balance -1685 ml Laboratory Data 24H LABS Laboratory Tests 2 05/03/19 11:44: Bedside Glucose (Misc Panel) 152H 05/03/19 14:08: Blood Urea Nitrogen 50H, Creatinine 2.05H, Sodium Level 140, Potassium Level 5.4H, Chloride Level 115H, Carbon Dioxide Level 20L, Anion Gap 5L, Glomerular Filtration Rate 25.2L, Calcium Level 9.2, Phosphorus Level 3.7, Albumin 2.9L 05/03/19 18:05: Bedside Glucose (Misc Panel) 176H 05/03/19 23:11: Bedside Glucose (Misc Panel) 191H 05/04/19 05:01: Blood Urea Nitrogen 39H, Creatinine 1.65H, Sodium Level 142, Potassium Level 4.9, Chloride Level 116H, Carbon Dioxide Level 21, Anion Gap 5L, Glomerular Filtration Rate 32.4L, Calcium Level 8.1L, Phosphorus Level 3.7, Albumin 2.6L 05/04/19 05:02: Nucleated Red Blood Cells % (auto) 0.0 05/04/19 05:29: Blood Gas Bicarbonate Standard 21.4L, Arterial Blood pH 7.397, Arterial Blood Partial Pressure CO2 34.1L, Arterial Blood Partial Pressure O2 173.4H, Arterial Blood Total CO2 21.6L, Arterial Blood HCO3 20.5L, Arterial Blood Base Excess - 3.7L, Arterial Blood Oxygen Saturation 99.0 CBC/BMP Laboratory Tests 05/03/19 14:08 Anion Gap 5 L 05/04/19 05:01 Anion Gap 5 L 05/04/19 05:02 Red Blood Count 3.01 L, Mean Corpuscular Volume 97.7 H, Mean Corpuscular Hemoglobin 30.6, Mean Corpuscular Hemoglobin Concent 31.3 L, Red Cell Distribution Width 14.3 CARITO JOSEPH MD May 04, 2019 11:01
--- NOTE | 2019-05-04 16:24 | IPN ---
DATE: 05/04/2019 SUBJECTIVE: Patient reports no acute events overnight. She states she is feeling well. She currently denies any chest pain, nausea, difficulty breathing. She continues to endorse some mild left-sided jaw pain that she continues to feel are the results of a tooth cavity. Overnight, she was not paced at all. According to staff, she did experience some mild desaturations, which are likely a result of her untreated obstructive sleep apnea. She currently is on 2 liters nasal cannula. OBJECTIVE: VITAL SIGNS: Heart rate is 73, temperature is 98.5, respiratory rate is 16, blood pressure is 140/68, pulse oximetry is 94% on 2 liters at the time of visit, but later on in the afternoon, documented 96% on room air. GENERAL: Patient is well-appearing this morning, in no acute distress. Pleasant, talkative and cooperative. HEENT: Head is normocephalic, atraumatic. Extraocular muscles intact. Mucous membranes are moist. NECK: No jugular venous distention (JVD) appreciated. Transvenous pacer continues to be present on the right side of the neck. CARDIOVASCULAR: Regular rate and rhythm. Normal S1, S2. No murmurs or rubs appreciated on auscultation. On casting technician, patient's heart rate is in the 70s. RESPIRATIONS: Clear to auscultation bilaterally. No wheezes. Mild crackles in bilateral bases. No rhonchi. EXTREMITIES: 1+ pitting edema in left lower extremity, 2+ peripheral pulses in bilateral lower extremities and upper extremities. GENITOURINARY (): Urinary catheter is in place. LABORATORIES: White blood cell count is 7, hemoglobin 9.2, hematocrit of 29.4, platelet count of 299. Arterial blood gas (ABG): pH of 7.397, pCO2 of 34.1, pO2 of 173.4. Chemistry: Sodium of 142, potassium 4.9, chloride of 116, bicarbonate of 21, BUN of 39, creatinine of 1.65, GFR of 32, glucose of 181, calcium of 8.1, phosphorus 3.7. Albumin of 2.6. ASSESSMENT/PLAN: Complete heart block requiring transvenous pacing secondary to possible renal insufficiency versus beta-gabriel overdose versus elevated potassium supplementation. This would be the beginning of day #3 with her transvenous pacemaker. She has not required any pacing overnight. We will continue to monitor her throughout the day and if she continues to not require any pacing, we will likely remove it at the end of the day. Echocardiogram did not show any signs of any wall abnormalities, signs of ischemia, and her troponins were normal. We will likely have her follow up in our office once she has the pacemaker removed. Her potassium level has now normalized; however, her creatinine level is still improving. We will defer to nephrology for management of fluids and renal function. For the time being, we will continue to hold the therapies that she was on before. Please do not hesitate to call with any questions. My faculty preceptor for this patient encounter was physically present during the encounter and was fully available. All aspects of the patient interview, examination, medical decision making process, and medical care plan development were reviewed and approved by the faculty preceptor. The faculty preceptor is aware and concurs with the plan as stated in the body of this note and will attest to such by his/her co-signature. KIM
--- NOTE | 2019-05-04 16:49 | IPN ---
DATE: 05/03/2019 SUBJECTIVE: The patient was seen and examined at the bedside today morning in the intensive care unit (ICU). She had the repositioning of the transvenous pacemaker wire yesterday under fluoroscopic guidance. She continues to be on transvenous pacemaker. She is otherwise hemodynamically stable. Pulse rate is in 70s now. There is no significant improvement in the renal function. Creatinine has been fluctuating close to 2. Hyperkalemia has not resolved fully. Potassium level is 5.6. The patient was in mild respiratory distress. She is requiring oxygen at 2 liters. OBJECTIVE: Vital signs: Temperature is 97.7 degrees Fahrenheit, blood pressure 108/57, pulse is 72, respiratory of 18, saturating 95% on 2 liters via nasal cannula. Intake and output: Urine output recorded yesterday is 875 mL. Urine output recorded so far today since overnight is 265 mL only. Weight in the bed scale is not available. PHYSICAL EXAMINATION: GENERAL: The patient is awake, alert, oriented times three. She is feeling better today as compared with yesterday. HEAD AND NECK: Extraocular muscles intact. Pupils equally round and reactive to light. Mucous membranes are moist. She has a right internal jugular (IJ) transvenous pacer. CARDIOVASCULAR: S1, S2, regular rate. Trace edema of the bilateral lower extremities. RESPIRATORY: Mildly decreased breath sounds at the bases. Mild expiratory crackles bilaterally at the bases up to the mid lung zones. ABDOMEN: Soft, obese. Positive bowel sounds. Nontender. No organomegaly. MUSCULOSKELETAL: No clubbing or cyanosis. Pulses are 2+. CENTRAL NERVOUS SYSTEM: No focal deficit. Power is 5/5 in all extremities. LABORATORY REVIEW: CBC showed WBC 8.9, hemoglobin 9.7, platelets of 337. ABG done today showed pH of 7.3, pO2 of 32, pO2 of 161, bicarbonate is 16.7. Oxygen saturation is 99%. BMP done today morning showed sodium 141, potassium 5.6, chloride 115, bicarbonate is 20, BUN 55, creatinine is 2.08, calcium 8.4. IMAGING STUDIES: Chest x-ray was done today morning, which showed mild improvement in the interstitial infiltrates. CURRENT INPATIENT MEDICATIONS: The patient's medications were all reviewed by me. She was getting D5 normal saline at 75 mL an hour. I have given the patient a dose of Lasix 40 mg intravenous (IV) times one dose. I also ordered a dose Kayexalate 30 grams by mouth times one dose. ASSESSMENT AND PLAN: 1. Acute renal failure. It was secondary to hemodynamic instability secondary to third-degree heart block and use of angiotensin-converting enzyme (GEORGIANA) inhibitors and diuretics at home. There is no significant improvement in the renal function so far; however, the patient is nonoliguric. She continues to be on IV fluid hydration, and I see the patient is slightly fluid overloaded. I will continue the gentle IV fluid hydration, because the patient is nothing by mouth; however, I am going to give the patient a dose of Lasix 40 mg IV, which will help with the fluid overload and hyperkalemia. 2. Hyperkalemia. The patient is being given a dose of Lasix, which will help with kaliuresis, and she will also be given a dose of Kayexalate 30 grams by mouth times one dose. 3. Complete heart block. The patient still has transvenous pacer. Last dose of beta gabriel was over the weekend. We have to wait at least 80 hours before Bystolic would be out of her system. Active metabolites of Bystolic can stay in the system longer because of acute renal failure as well. If the patient's heart block does not improve after a wait of 3 days and improvement in the electrolytes, then she would most likely need a permanent pacemaker. 3. Normal anion gap metabolic acidosis. Patient's bicarbonate level has been staying stable at 20. No need of IV bicarbonate administration. Bicarbonate level would improve with improvement in the renal function. 4. Diabetes mellitus, type 2. Continue D5 while the patient is nothing by mouth. Avoid use of metformin. Continue insulin sliding scale as needed. 5. Chronic obstructive pulmonary disease (COPD). Management is as per primary team. Total critical care time spent in the management of this patient today morning in the ICU was 45 minutes. That does not include any procedures.
[2019-05-04] MEDS ORDERED: ACETAMINOPHEN TAB 650MG DOSE (2X325MG) As Ordered ONE (20:41)
[2019-05-04] MEDS: ACETAMINOPHEN TAB 650MG DOSE (2X325MG) PO PRN (21:03)
--- NOTE | 2019-05-04 22:22 | IPN ---
DATE: 05/04/2019 Ms. Eunice Mejias was seen yesterday and initially she was seen Thursday morning with resident Dr. Franco. She was initially admitted with shortness of breath, dizziness and was found to be in a complete heart block. A temporary transvenous pacemaker was inserted by the emergency room (ER) provider. She did well and was transferred to intensive care unit (ICU)/CCU for further management and monitoring. She was found to have some deterioration in her kidney function and serum potassium was markedly elevated up to 7.1. She was treated in the emergency room (ER); and by the end of the day on 05/02/2019, her serum potassium was 5.1. Initially, the tip of the transvenous temporary pacer wire was in the right atrium and it was under fluoroscopy pushed down to the RV by Dr. Remy. Dr. Remy was called for consult for a permanent pacemaker. The patient remained stable and her serum potassium had improved and varied between 5.4 and 5.6 yesterday. His serum BUN, creatinine and also has improved. Because of the persistent hyperkalemia, case was discussed with her drain tile machine operator and IV Lasix was given in the morning and in the evening, she was given Kayexalate. When I saw her in the evening, she was supine in bed in no acute distress at rest and she was having loose stools. Because of the Kayexalate. She denies any dizziness and she had no abdominal pain. There was no orthopnea or paroxysmal nocturnal dyspnea (PND). There is no palpitations. The pacemaker was capturing well. There is no report of bleeding. Prior to coming to the hospital, she was taking an GEORGIANA inhibitor, as well as spirolactone. Initially, she stated that she was taking potassium treatment; but after that, she has reviewed her meds and she was on magnesium supplement, but not on potassium supplement. She also was on diuretic. She was on beta-gabriel and also this medication was held. PHYSICAL EXAMINATION: The patient is alert and oriented, in no acute distress at rest and very pleasant. Her vital signs when I saw her in the evening was 128/94 and prior to that it was 143/63 with a pulse of 70, respiration 18-20 and a maximum temperature was 98 degrees Fahrenheit, oxygen saturation of 95% on 2 liters cannula. Examination of the head atraumatic: Atraumatic. Neck: Neck is supple with transvenous catheter in the right IJ. The lungs revealed minimal crackles at the bases but no wheezing. Heart examination revealed regular heart sounds, S4 gallops. The PMI is not displaced. There is no rub. Abdomen is soft, nontender. Bowel sounds are active. Extremities reveal trace bilateral ankle edema. Neurologic examination Is negative for focal deficit. LABORATORY DATA: Basic metabolic panel (BMP) on 04/30/2019 at 1408 revealed a sodium of 140, potassium 5.4, chloride 115, CO2 20, BUN 50, creatinine 2.05, glomerular filtration rate (GFR) 25.20, fasting glucose 160, calcium 9.7. Complete blood count (CBC) revealed a white blood count (WBC) of 3.0, hemoglobin 9.2, hematocrit 29.4 and platelet 299,000. Mrs. Eunice Mejias seems to be stable. Initially admitted with complete heart block and most likely related to her medications in the setting of the deterioration in kidney function and hyperkalemia and the patient on beta gabriel. This medication has been on hold. Will monitor her blood pressure. The pacemaker was turned off at bedside and normal sinus rhythm, her own rhythm. Will bring the rate from 70 to 40 and she will be monitored overnight. Further recommendation will be given in the morning. If she continues to be stable and the transvenous temporary pacemaker will be discontinued and removed and reviewed. This was discussed with her, as well as her family and her . LABORATORY WORK: She had an echocardiogram done on admission 05/01/2019 and it revealed a normal global left ventricular systolic function. KIM
[2019-05-05] VITALS (11 sets, daily range): BP systolic 138–187; BP diastolic 52–79
[2019-05-05] MEDS: HEPARIN SOD (PORCINE) 5000 UNITS/ML VIAL SQ SCH ×3 (01:28→17:09)
[2019-05-05] MEDS: PERCOCET 5MG/325MG TAB PO PRN ×2 (03:46→07:56)
--- NOTE | 2019-05-05 07:32 | IPN ---
DATE OF SERVICE: 05/04/2019 SUBJECTIVE: The patient was seen and examined at the bedside today morning. She feels much better today. She was given a dose of Lasix 40 mg IV yesterday that helped improve her shortness of breath. She made a good amount of urine. Her renal function is stable and improving, hyperkalemia is also improving with more diuresis and a dose of Kayexalate that was given yesterday. More so, the patient the patient's transvenous pacer is turned off at this time and her pulse rate is staying in the 60s-70s. The patient is out of bed today and she started eating food today morning as well. OBJECTIVE: Vital signs: Temperature is 98.5 degrees Fahrenheit, blood pressure 150/68, pulse is 66, respiratory of 16, saturating 94% on nasal cannula at 2 liters. Intake and output: Urine output recorded as 2.3 liters yesterday, 910 mL so far today since overnight. Weight in the bed scale is not available. PHYSICAL EXAMINATION: General: The patient is awake, alert, oriented times three sitting up in the bed in no apparent distress. Head and neck exam: Extraocular muscles intact. Pupils equally round and reactive to light. Mucous membranes are moist. Neck: Neck is supple. There is no jugular venous distention (JVD). She has right internal jugular (IJ) transvenous pacer leads. Cardiovascular: S1. S2. Regular rate. No edema of the bilateral lower extremities. Respiratory: Mildly decreased breath sounds at the bases with mild inspiratory crackles bilaterally at the bases up to the midlung zones. Abdomen: Soft, obese, positive bowel sounds. Nontender. Musculoskeletal: No clubbing or cyanosis. Pulses are 2+. Central nervous system (WHEEL FITTER): No focal deficit, power is 5/5 in all extremities. Genitourinary: Elizabeth catheter has been removed now. LABORATORY REVIEW: CBC showed WBC of 7, hemoglobin 9.2, platelets of 299. ABG done today morning showed pH of 7.39, pCO2 34, pO2 173, bicarb is 20.5. O2 sat is 99%. Basic metabolic profile (BMP) showed sodium 142, potassium 4.9, chloride 116, bicarb 21, BUN 39, creatinine is 1.6, it was 2.05 yesterday, calcium is 8.1, phosphorus 3.7, albumin 2.6. CURRENT INPATIENT MEDICATIONS: The patient's medications were all reviewed by me. IV fluids was switched to D5 half-normal saline overnight. However I am going to stop the IV fluids now, Lovenox was stopped yesterday. She was given one dose of Lasix yesterday and I have ordered another dose of Lasix 40 mg IV today. No other change in the medications today as compared with yesterday. ASSESSMENT/PLAN: 1. Acute nonoliguric renal failure. It was secondary to hemodynamic instability. The renal function is improving, creatinine is trending down. Okay to give another dose of diuretics. 2. Complete heart block. The patient's pulse rate is in 60s and 70s. Transvenous pacer is on hold. Cardiology is planning to remove the venous pacer today. There is no Plans for permanent pacemaker placement. Avoid further use of beta blockers. 3. Hyperkalemia. Potassium level has improved with the diuresis and use of Kayexalate. Continue low potassium diet. 4. Acute decompensated diastolic congestive heart failure. The patient is going to get at another dose of Lasix 40 mg intravenous times one dose. IV fluids are being stopped. The patient is eating now. 5. Normal anion gap metabolic acidosis, bicarb level is improving. It is up to 21 now. It is improving with improvement in the renal function.
[2019-05-05] MEDS: IPRATROPIUM 0.5MG/ALBUTEROL 2.5MG INH SOL UD 3ML (DUONEB)(J7620) NEB SCH ×3 (08:00→20:13)
[2019-05-05 08:04] LABS: HEMATOCRIT 34.9 % (36.0-47.0); HEMOGLOBIN 10.9 g/dl (12.0-15.5); MEAN CORPUSCULAR HEMOGLOBIN 31.1 pg (27.0-33.0); MEAN CORPUSCULAR HGB CONC 31.2 g/dl (32.0-36.5); MEAN CORPUSCULAR VOLUME 99.4 fl (80.0-96.0); PLATELET COUNT, AUTOMATED 306 10^3/uL (150-450); RED BLOOD COUNT 3.51 10^6/uL (4.00-5.40); WHITE BLOOD COUNT 8.9 10^3/uL (4.0-10.0)
[2019-05-05 08:34] LABS: CREATININE FOR GFR 1.2 MG/DL (0.55-1.30); GLOMERULAR FILTRATION RATE 46.8 (>39); POTASSIUM SERUM 4.9 MEQ/L (3.5-5.1)
[2019-05-05] MEDS: HumaLOG INSULIN (NovoLOG) PER UNIT SC SCH ×4 (08:51→21:00)
[2019-05-05] MEDS: FAMOTIDINE 20 MG TAB PO SCH (08:52)
[2019-05-05] MEDS: ALPRAZolam 0.25 MG TAB PO SCH ×4 (08:52→20:49)
[2019-05-05] MEDS: FLUTICASONE PROP 0.05% NASAL SPRAY 16 GM (FLONASE) NARES SCH (08:52)
[2019-05-05] MEDS: CHLORHEXIDINE GLUCONATE 0.12 % 15ML UDC (PERIDEX ORAL RINSE) MT SCH ×2 (08:53→20:49)
[2019-05-05] MEDS ORDERED: FUROSEMIDE 20 MG/2 ML VIAL (J1940) IV ONE (11:00)
--- NOTE | 2019-05-05 12:09 | IPNPDOC ---
Subjective Date Seen The patient was seen on 05/05/19. Subjective Chief Complaint/HPI Patient seen and examined at the bedside. Reports that she is continuing to improve overall. She does endorse having a headache this morning which she thinks is related, to poor sleep and discomfort from Right IJ TLC. Denies any visual disturbances or any other acute complaints. Objective Physical Examination General Exam: Positive: Alert, Cooperative, No Acute Distress ENT Exam: Positive: Atraumatic, Mucous membr. moist/pink Neck Exam: Positive: Other (no JVD, no adenopathy; right IJ transvenous pacemaker present) Chest Exam: Positive: Diminished; Negative: Rales, Rhonchi, Wheezing Heart Exam: Positive: Rate Normal, Normal S1, Normal S2 Telemetry: Positive: Sinus Abdomen Exam: Positive: Soft; Negative: Tenderness Extremity Exam: Negative: Tenderness Psych Exam: Positive: Mental status NL, Mood NL, Oriented x 3 Assessment /Plan Plan/VTE VTE Prophylaxis Ordered?: Yes Plan Complete heart block possibly 2/2 Beta Blockers Originally thought to be secondary beta blockade vs hyperkalemia from worsening renal insufficiency s/p Transvenous temporary pacer placement on 05/02 ECHO did not reveal any acute cardiomyopathy or wall motion abnormalities, and troponins have remained flat Patient's heart rate has improved and she has been doing well with her pacemaker HR settings turned down, and has not required pacing Dr. Morrison/Dr. Remy of Cardiology on board We will continue to monitor--will f/u with Cardiology recommendations to possibly remove temporary pacer BIANCA superimposed on CKD III, resolved Serum Cr back at baseline Nephrology on board Non-anion gap metabolic acidosis, resolved Diabetes ISS ordered CAD with 1 stent The patient does not appear to have any acute ischemic sequelae at this time COPD without exacerbation Continue nebs as ordered Acute pulmonary edema secondary to heart block Improved with IV Lasix Nocturnal hypoxia - probable TETO Follow-up with pulmonary GERD PO Pepcid DVT prophylaxis Heparin subcutaneous VS, I&O, 24H, Fishbone Vital Signs/I&O Vital Signs Date Time Temp Pulse Resp B/P (MAP) Pulse Ox O2 Delivery O2 Flow Rate FiO2 05/05/19 08:53 72 160/65 05/05/19 08:26 18 05/05/19 08:00 97.1 96 05/05/19 07:56 2.0 05/03/19 03:44 97 05/02/19 06:48 Room Air I&O- Last 24 Hours up to 6 AM 05/05/19 06:00 Intake Total 1500 ml Output Total 1865 ml Balance -365 ml Laboratory Data 24H LABS Laboratory Tests 2 05/04/19 16:29: Bedside Glucose (Misc Panel) 158H 05/04/19 20:44: Bedside Glucose (Misc Panel) 212H 05/05/19 07:40: Nucleated Red Blood Cells % (auto) 0.0, Anion Gap 6L, Glomerular Filtration Rate 46.8, Blood Urea Nitrogen 26H, Creatinine 1.20, Sodium Level 139, Potassium Level 4.9, Chloride Level 109H, Carbon Dioxide Level 24, Calcium Level 9.0 05/05/19 08:08: Bedside Glucose (Misc Panel) 187H CBC/BMP Laboratory Tests 05/05/19 07:40 Red Blood Count 3.51 L, Mean Corpuscular Volume 99.4 H, Mean Corpuscular H emoglobin 31.1, Mean Corpuscular Hemoglobin Concent 31.2 L, Red Cell Distribution Width 14.2, Calcium Level 9.0 CARITO JOSEPH MD May 05, 2019 12:09
[2019-05-05] MEDS: ACETAMINOPHEN TAB 650MG DOSE (2X325MG) PO PRN (15:01)
--- NOTE | 2019-05-05 16:32 | IPN ---
DATE: 05/05/2019 SUBJECTIVE: The patient was seen and examined at the bedside today morning in the ICU. She is awake and alert. She was sitting in the sofa. She reports being uncomfortable with the transvenous pacer wire in the right IJ. Otherwise her transvenous pacing is off. She is in sinus rhythm. Her pulse rate is in mid to high 60s. Renal function is stable and improving, creatinine is down to 1.2. Her blood pressures are slightly high today. She otherwise has no active complaints. OBJECTIVE: VITAL SIGNS: Temperature is 97.1 degrees Fahrenheit, blood pressure 160/65, pulse is 72, respiratory rate of 18, saturating 96% on room air. INTAKE AND OUTPUT: Urine output recorded is 2 liters yesterday, 800 mL so far today since overnight. Weight in the bed scale is not available. PHYSICAL EXAMINATION: GENERAL: The patient is awake, alert, oriented times three, sitting up in the sofa, no apparent distress. HEAD AND NECK EXAM: Extraocular muscles intact. Pupils equally round and reactive to light. Neck is supple. She has a transvenous pacer wire in the right IJ. CARDIOVASCULAR: S1, S2, regular rate. No edema of the bilateral lower extremities. RESPIRATORY: Chest is clear to auscultation bilaterally. Bilateral equal air entry. No rales or rhonchi. ABDOMEN: Soft. Positive bowel sounds. Nontender. MUSCULOSKELETAL: No clubbing or cyanosis. Pulses are 2+. SOAKER HELPER: No focal deficit, power is 5/5 in all extremities. LABORATORY REVIEW: CBC showed WBC 8.9, hemoglobin 10.9, platelets are 306. BMP showed sodium 159, potassium 4.9, chloride 109, bicarbonate 24, BUN 26, creatinine is 1.2, it was 1.6 yesterday. CURRENT INPATIENT MEDICATIONS: The patient's medications were all reviewed by me. She is supposed to get another dose of Lasix 20 mg IV which was ordered today morning. She has been started on amlodipine 2.5 mg by mouth daily starting today morning. No other change in the medications today as compared with yesterday. ASSESSMENT/PLAN: 1. Acute kidney injury superimposed on chronic kidney disease stage III. Patient's renal function has improved back to baseline, creatinine is 1.2. Electrolytes are within the acceptable range. 2. Status post complete heart block. The patient is in sinus rhythm, pulse rate in 60s and 70s. No need of transvenous pacing at this time. 3. Hypertension. The patient's blood pressures are slightly elevated. She is going to get another dose of Lasix and she has also been started on amlodipine. Amlodipine dose can be increased as needed. Further adjustment of antihypertensives to be done tomorrow. 4. Diastolic congestive heart failure. The patient got Lasix [id number] for last 2 days. She will get another dose of 20 mg IV times one dose and by tomorrow I would switch the patient to oral diuretics. 5. Anemia in chronic kidney disease. Hemoglobin is 10.9 which is optimal. No need of JENNY.
[2019-05-06] MEDS: HEPARIN SOD (PORCINE) 5000 UNITS/ML VIAL SQ SCH ×3 (00:09→16:58)
[2019-05-06] MEDS: PERCOCET 5MG/325MG TAB PO PRN ×2 (00:10→12:11)
[2019-05-06 06:00] VITALS: BP 130/50
[2019-05-06 06:31] LABS: HEMATOCRIT 33.3 % (36.0-47.0); HEMOGLOBIN 10.8 g/dl (12.0-15.5); MEAN CORPUSCULAR HEMOGLOBIN 31.7 pg (27.0-33.0); MEAN CORPUSCULAR HGB CONC 32.4 g/dl (32.0-36.5); MEAN CORPUSCULAR VOLUME 97.7 fl (80.0-96.0); PLATELET COUNT, AUTOMATED 328 10^3/uL (150-450); RED BLOOD COUNT 3.41 10^6/uL (4.00-5.40); WHITE BLOOD COUNT 8.7 10^3/uL (4.0-10.0)
[2019-05-06 07:03] LABS: CALCIUM LEVEL 9.4 MG/DL (8.8-10.2); CREATININE FOR GFR 1.27 MG/DL (0.55-1.30); GLOMERULAR FILTRATION RATE 43.8 (>39); POTASSIUM SERUM 4.8 MEQ/L (3.5-5.1)
[2019-05-06] MEDS: CHLORHEXIDINE GLUCONATE 0.12 % 15ML UDC (PERIDEX ORAL RINSE) MT SCH ×2 (07:34→21:23)
[2019-05-06] MEDS: HumaLOG INSULIN (NovoLOG) PER UNIT SC SCH ×4 (07:34→21:00)
[2019-05-06] MEDS: FAMOTIDINE 20 MG TAB PO SCH (07:35)
[2019-05-06] MEDS: ALPRAZolam 0.25 MG TAB PO SCH ×4 (07:35→21:23)
[2019-05-06] MEDS: amLODIPine 5 MG TAB PO SCH (07:35)
[2019-05-06] MEDS: IPRATROPIUM 0.5MG/ALBUTEROL 2.5MG INH SOL UD 3ML (DUONEB)(J7620) NEB SCH ×4 (07:58→20:18)
--- NOTE | 2019-05-06 11:27 | NOCOX ---
DATE OF PROCEDURE: 05/05/2019 ORDERING PROVIDER: INTERPRETATION: Study was performed on room air. The total valid sampling time for this study was 5 hours and 20 minutes. The highest O2 sat was 98% with the low of 83%. The total time spent with an O2 saturation less than 88% was 26 minutes. The desaturation event index was approximately 5.4. On the graphical summary, there were episodic variable desaturations. There was also some heart rate variability noted during the study. IMPRESSION: Abnormal nocturnal oximetry study. The patient does have significant desaturation and graphically has episodes of variable desaturation, which may be suggestive of the diagnosis of obstructive sleep apnea. The patient would need formal sleep testing for further evaluation if clinically indicated. KIM
[2019-05-06] MEDS ORDERED: SODIUM CHLORIDE NASAL 0.65% SPRAY BTL (OCEAN) PRN (12:00)
[2019-05-06] MEDS: FUROSEMIDE 40 MG TAB PO SCH (12:11)
--- NOTE | 2019-05-06 13:53 | IPNPDOC ---
Subjective Date Seen The patient was seen on 05/06/19. Subjective Chief Complaint/HPI Patient seen and examined at the bedside. Reports that she is continuing to progress with physical therapy. No acute complaints noted at this time. Objective Physical Examination General Exam: Positive: Alert, Cooperative, No Acute Distress ENT Exam: Positive: Atraumatic, Mucous membr. moist/pink Neck Exam: Positive: Other (no JVD, no adenopathy; right IJ transvenous pacemaker present) Chest Exam: Positive: Diminished; Negative: Rales, Rhonchi, Wheezing Heart Exam: Positive: Rate Normal, Normal S1, Normal S2 Telemetry: Positive: Sinus Abdomen Exam: Positive: Soft; Negative: Tenderness Extremity Exam: Negative: Tenderness Psych Exam: Positive: Mental status NL, Mood NL, Oriented x 3 Assessment /Plan Plan/VTE VTE Prophylaxis Ordered?: Yes Plan Complete heart block possibly 2/2 Beta Blockers Originally thought to be secondary beta blockade vs hyperkalemia from worsening renal insufficiency s/p Transvenous temporary pacer placement on 05/02 ECHO did not reveal any acute cardiomyopathy or wall motion abnormalities, and troponins have remained flat Patient's heart rate has improved and she has been doing well with her pacemaker HR settings turned down, and has not required pacing--Transvenous pacemaker has been removed Dr. Morrison/Dr. Remy of Cardiology on board We will continue to monitor BIANCA superimposed on CKD III, resolved Serum Cr back at baseline Nephrology on board Non-anion gap metabolic acidosis, resolved Diabetes ISS ordered CAD with 1 stent The patient does not appear to have any acute ischemic sequelae at this time COPD without exacerbation Continue nebs as ordered Acute pulmonary edema secondary to heart block Improved with Lasix Nocturnal hypoxia - probable TETO Follow-up with pulmonary GERD PO Pepcid DVT prophylaxis Heparin subcutaneous Dispo--pending continued clinical improvement, PT clearance. VS, I&O, 24H, Fishbone Vital Signs/I&O Vital Signs Date Time Temp Pulse Resp B/P (MAP) Pulse Ox O2 Delivery O2 Flow Rate FiO2 05/06/19 12:41 18 05/06/19 07:35 70 132/68 05/06/19 06:00 97.3 92 05/05/19 07:56 2.0 05/03/19 03:44 97 05/02/19 06:48 Room Air I&O- Last 24 Hours up to 6 AM 05/06/19 05:59 Intake Total 1180 ml Output Total 2600 ml Balance -1420 ml Laboratory Data 24H LABS Laboratory Tests 2 05/05/19 17:02: Bedside Glucose (Misc Panel) 198H 05/05/19 21:15: Bedside Glucose (Misc Panel) 223H 05/06/19 06:04: Nucleated Red Blood Cells % (auto) 0.0, Anion Gap 7L, Glomerular Filtration Rate 43.8, Blood Urea Nitrogen 33H, Creatinine 1.27, Sodium Level 138, Potassium Level 4.8, Chloride Level 108H, Carbon Dioxide Level 23, Calcium Level 9.4 05/06/19 11:23: Bedside Glucose (Misc Panel) 179H CBC/BMP Laboratory Tests 05/06/19 06:04 Red Blood Count 3.41 L, Mean Corpuscular Volume 97.7 H, Mean Corpuscular Hemoglobin 31.7, Mean Corpuscular Hemoglobin Concent 32.4, Red Cell Distribution Width 14.1, Calcium Level 9.4 CARITO JOSEPH MD May 06, 2019 13:53
[2019-05-06 14:00] VITALS: BP 162/67
--- NOTE | 2019-05-06 17:18 | IPN ---
DATE: 05/06/2019 SUBJECTIVE: Patient was seen and examined at the bedside today morning. She was downgraded from the intensive care unit (ICU). She is afebrile, hemodynamically stable. Her renal function is stable. Blood pressure is optimized. Transvenous pacer wires were removed yesterday. Patient reports she took a shower yesterday and she feels much better. OBJECTIVE: VITAL SIGNS: Temperature is 97.3 degrees Fahrenheit, blood pressure 130/50, pulse is 71, respiratory rate of 17, saturating 92% on room air. INTAKE AND OUTPUT: Urine output recorded is 2.7 liters yesterday, 200 mL so far today since overnight. Weight in the bed scale is not available. PHYSICAL EXAMINATION: GENERAL: Patient is awake, alert, oriented times three, sitting up in the bed in no apparent distress. HEAD AND NECK EXAM: Extraocular muscles intact. Pupils equally round and reactive to light. Mucous membranes are moist. Neck is supple. Right internal jugular (IJ) transvenous pacer wires have been removed. There is a dressing there now. CARDIOVASCULAR: S1, S2. Regular rate. Trace edema of the bilateral lower extremities. RESPIRATORY: Chest is clear to auscultation bilaterally. Bilateral equal air entry. No rales or rhonchi. ABDOMEN: Soft. Positive bowel sounds. Nontender. MUSCULOSKELETAL: No clubbing or cyanosis. Pulses are 2+. CENTRAL NERVOUS SYSTEM (MEDICAL RECORDS SECRETARY): No focal deficit. Power is 05/05 in all extremities. LABORATORY REVIEW: Complete blood count (CBC) showed a WBC 8.7, hemoglobin 10.8, platelets are 328. Basic metabolic panel (BMP) showed sodium 138, potassium 4.8 , bicarbonate 23, BUN 33, creatinine is 1.2, calcium 9.4. CURRENT INPATIENT MEDICATIONS: Patient's medications were all reviewed by me. Amlodipine has been increased to 5 mg by mouth daily. She has been started on furosemide 40 mg by mouth daily. No other change in the medications today as compared with yesterday. ASSESSMENT AND PLAN: 1. Chronic kidney disease stage III. Patient's renal function has improved back to baseline. Creatinine has been stable at 1.2. Okay to restart home dose of furosemide now. 2. Hypertension. Blood pressure was elevated. Amlodipine dose has been increased to 5 mg daily. Avoid further use of beta blockers in future 3. Diastolic congestive heart failure. Restart home dose of Lasix 40 mg by mouth daily. Potassium level is within the acceptable range.
[2019-05-06] MEDS: **hydrALAZINE** 10 MG TAB PO SCH (21:23)
[2019-05-06 22:00] VITALS: BP 146/60
[2019-05-07] MEDS: HEPARIN SOD (PORCINE) 5000 UNITS/ML VIAL SQ SCH ×2 (00:07→09:30)
[2019-05-07] MEDS: ACETAMINOPHEN TAB 650MG DOSE (2X325MG) PO PRN (00:08)
[2019-05-07 06:00] VITALS: BP 136/62
[2019-05-07 06:38] LABS: HEMATOCRIT 35.2 % (36.0-47.0); HEMOGLOBIN 11.4 g/dl (12.0-15.5); MEAN CORPUSCULAR HEMOGLOBIN 30.8 pg (27.0-33.0); MEAN CORPUSCULAR HGB CONC 32.4 g/dl (32.0-36.5); MEAN CORPUSCULAR VOLUME 95.1 fl (80.0-96.0); PLATELET COUNT, AUTOMATED 370 10^3/uL (150-450); WHITE BLOOD COUNT 9.1 10^3/uL (4.0-10.0)
[2019-05-07 07:00] LABS: CALCIUM LEVEL 9.9 MG/DL (8.8-10.2); CREATININE FOR GFR 1.19 MG/DL (0.55-1.30); GLOMERULAR FILTRATION RATE 47.2 (>39); POTASSIUM SERUM 4.8 MEQ/L (3.5-5.1)
[2019-05-07] MEDS: IPRATROPIUM 0.5MG/ALBUTEROL 2.5MG INH SOL UD 3ML (DUONEB)(J7620) NEB SCH ×2 (08:14→11:43)
[2019-05-07] MEDS: HumaLOG INSULIN (NovoLOG) PER UNIT SC SCH ×2 (09:29→12:39)
[2019-05-07] MEDS: FAMOTIDINE 20 MG TAB PO SCH (09:30)
[2019-05-07] MEDS: FUROSEMIDE 40 MG TAB PO SCH (09:30)
[2019-05-07 09:32] VITALS: BP 136/62
[2019-05-07] MEDS: amLODIPine 5 MG TAB PO SCH (09:32)
[2019-05-07] MEDS: CHLORHEXIDINE GLUCONATE 0.12 % 15ML UDC (PERIDEX ORAL RINSE) MT SCH (09:33)
[2019-05-07] MEDS: ALPRAZolam 0.25 MG TAB PO SCH ×2 (09:33→12:40)
[2019-05-07] MEDS: **hydrALAZINE** 10 MG TAB PO SCH (09:39)
--- NOTE | 2019-05-07 12:06 | IPNPDOC ---
Subjective Date Seen The patient was seen on 05/07/19. Subjective Chief Complaint/HPI Patient seen and examined at the bedside. States that she was cleared by physical therapy yesterday, but only did 5 steps of stairs. States that she has to clear 15 steps to be able to go upstairs to her full bathroom with shower at home. We will have the patient reevaluated by physical therapy this morning. Objective Physical Examination General Exam: Positive: Alert, Cooperative, No Acute Distress ENT Exam: Positive: Atraumatic, Mucous membr. moist/pink Neck Exam: Positive: Other (no JVD, no adenopathy; right IJ transvenous pacemaker present) Chest Exam: Positive: Diminished; Negative: Rales, Rhonchi, Wheezing Heart Exam: Positive: Rate Normal, Normal S1, Normal S2 Telemetry: Positive: Sinus Abdomen Exam: Positive: Soft; Negative: Tenderness Extremity Exam: Negative: Tenderness Psych Exam: Positive: Mental status NL, Mood NL, Oriented x 3 Assessment /Plan Plan/VTE VTE Prophylaxis Ordered?: Yes Plan Complete heart block possibly 2/2 Beta Blockers Originally thought to be secondary beta blockade vs hyperkalemia from worsening renal insufficiency s/p Transvenous temporary pacer placement on 05/02 ECHO did not reveal any acute cardiomyopathy or wall motion abnormalities, and troponins have remained flat Patient's heart rate has improved and she has been doing well with her pacemaker HR settings turned down, and has not required pacing--Transvenous pacemaker has been removed Dr. Morrison/Dr. Remy of Cardiology on board We will continue to monitor BIANCA superimposed on CKD III, resolved Serum Cr back at baseline Nephrology on board Non-anion gap metabolic acidosis, resolved Diabetes ISS ordered CAD with 1 stent The patient does not appear to have any acute ischemic sequelae at this time COPD without exacerbation Continue nebs as ordered Acute pulmonary edema secondary to heart block Improved with Lasix Nocturnal hypoxia - probable TETO Follow-up with pulmonary GERD PO Pepcid DVT prophylaxis Heparin subcutaneous Dispo--pending continued clinical improvement, PT clearance. VS, I&O, 24H, Fishbone Vital Signs/I&O Vital Signs Date Time Temp Pulse Resp B/P (MAP) Pulse Ox O2 Delivery O2 Flow Rate FiO2 05/07/19 09:32 79 136/62 05/07/19 06:00 97.7 18 98 05/05/19 07:56 2.0 05/03/19 03:44 97 05/02/19 06:48 Room Air I&O- Last 24 Hours up to 6 AM 05/07/19 06:00 Intake Total 1500 ml Output Total 400 ml Balance 1100 ml Laboratory Data 24H LABS Laboratory Tests 2 05/06/19 16:28: Bedside Glucose (Misc Panel) 221H 05/07/19 06:04: Nucleated Red Blood Cells % (auto) 0.0, Anion Gap 7L, Glomerular Filtration Rate 47.2, Blood Urea Nitrogen 37H, Creatinine 1.19, Sodium Level 135L, Potassium Level 4.8, Chloride Level 106, Carbon Dioxide Level 22, Calcium Level 9.9 CBC/BMP Laboratory Tests 05/07/19 06:04 Red Blood Count 3.70 L, Mean Corpuscular Volume 95.1, Mean Corpuscular Hemoglobin 30.8, Mean Corpuscular Hemoglobin Concent 32.4, Red Cell Distribution Width 13.9, Calcium Level 9.9 CARITO JOSEPH MD May 07, 2019 12:05
--- NOTE | 2019-05-09 07:54 | IPN ---
CARDIOLOGY INPATIENT PROGRESS NOTE: DATE OF SERVICE: 05/05/2019 Mrs. Eunice Mejias was seen yesterday in the evening. She was supine in bed in no acute distress at rest, and her son was at bedside. She was transferred to the medical/surgical floor earlier today from intensive care unit (ICU)/critical care unit (CCU) and currently on telemetry. She said that she feels weak; otherwise, she denies any dizziness, lightheadedness. She denies any chest pain, palpitations. Her telemetry revealed normal sinus rhythm. She has no focal manifestation. She has no cough, and she denies any bleeding. PHYSICAL EXAMINATION: Patient is alert and oriented, in no acute distress at rest, and her vital signs revealed a blood pressure of 145/72 and prior to that, it was 152/62 with a pulse that varied between 60 and 80, respiration 18-20, and her maximum temperature was 99 degrees Fahrenheit with an oxygen saturation of 96-99% on room air. She had a negative fluid balance of 300 mL for 05/04/2019. Examination of the head, eyes, ears, nose, and throat: Atraumatic. Neck: Is supple and no jugular venous distention (JVD) appreciated. The lungs revealed minimal crackles at the bases. The heart examination revealed normal S1 and S2 without gallops. The point of maximal impulse (PMI) is not displaced. There is no rub. I could not appreciate any murmurs. Abdomen: Is unremarkable. Extremities: Revealed trace bilateral lower leg edema, more on the left lower extremity than the right. Neurological examination: Is negative for focal deficit. LABS: CBC on 05/05/2019 revealed a WBC of 8.9, hemoglobin 10.9, hematocrit 34.9, and platelet 306,000. BMP revealed a sodium of 139, potassium 4.9, chloride 109, CO2 of 24, BUN 26, creatinine 1.2, GFR of 46.8, fasting glucose 186, and calcium 9.0. Telemetry revealed normal sinus rhythm. Mrs. Eunice Mejias is stable, status post hospitalization on 05/02/2019, with complete heart block in the setting of hyperkalemia and deterioration of kidney function. She was on angiotensin-converting enzyme (GEORGIANA) inhibitor as well as spironolactone and a beta-gabriel. She had a temporary transvenous pacemaker that was removed earlier today. Telemetry revealed normal sinus rhythm. Will continue monitoring her. Her potassium has been stable, and her kidney function has improved. Her underlying coronary artery disease has been stable. Her blood pressure is elevated, and I have increased the amlodipine up to 5 mg by mouth daily. She will be monitored. Will stay at that dose in view of her pedal edema. She has started physical therapy, but she is feeling weak. We will see how she does tomorrow. While in the ICU/CCU, she desaturated at night and we will do an overnight oximeter for further assessment. KIM
--- NOTE | 2019-05-09 07:54 | IPN ---
INPATIENT CARDIOLOGY PROGRESS NOTE: DATE OF SERVICE: 05/06/2019 Mrs. Eunice Mejias was seen this evening. She was sitting up in bed in no acute distress at rest, and her as well as her daughter were at bedside. She denies any dizziness or lightheadedness. She stated that she feels stronger and had more physical therapy done today, including a few steps on the stairs. Her Lasix was restarted earlier today. Yesterday, I had increased her amlodipine in order to better control her blood pressure. She denies any chest pain or palpitations. She has no cough or hematemesis. There is no report of bleeding. There is no focal manifestation. On physical examination, patient is alert and oriented, in no acute distress at rest, and her vital signs this afternoon revealed a blood pressure of 162/67 with a pulse rate of 70, respiratory rate 18, and her maximum temperature is 97.9 degrees Fahrenheit with an oxygen saturation of 95% on room air. She has a negative fluid balance of 1.5 liters for 05/05/2019. Examination of the head: Atraumatic. Neck is supple. No jugular venous distention (JVD) appreciated. No swelling or inflammation on the right side of the neck where the transvenous temporary pacing wire was inserted. The lungs today appeared to be clear bilaterally on auscultation without any wheezing or crackles. The heart examination revealed normal S1 and S2 without gallops. The point of maximal impulse (PMI) is not displaced. There is no rub. Abdomen: Is soft and nontender. Bowel sounds are active. Extremities: Revealed trace bilateral lower leg edema, more on the left lower extremity than the right. Neurological examination: Is negative for focal deficit. LABS: BMP done today revealed a sodium of 138, potassium 4.8, chloride 108, CO2 of 23, BUN 33, creatinine 1.27, GFR 43.8, fasting glucose 152, and calcium 9.4. CBC revealed a WBC of 8.7, hemoglobin 10.8, hematocrit 33.3, and platelet 328,000. Telemetry revealed normal sinus rhythm. IMPRESSION: 1. Status post complete heart block in the setting of deterioration of kidney function with hyperkalemia and on the background of GEORGIANA inhibitor as well as spironolactone and a beta-gabriel/Bystolic. This was managed with a temporary transvenous pacemaker. It was removed yesterday, and patient has been doing well. She has started physical therapy, and she is getting stronger. She might be able to be discharged this weekend. She, however, will need oxygen supplement at night while sleeping. She desaturated less than 85% yesterday and during the night. 2. History of coronary artery disease, stable. Patient had a recent negative nuclear stress test, normal left ventricular ejection fraction (LVEF). Her echocardiogram done this hospitalization also revealed a normal LVEF. She, today, will be restarted on her aspirin. 3. Hypertension and not quite under control. She will continue the amlodipine, and today I have added hydralazine. 4. Hyperlipidemia. Prior to coming to the hospital, she was on Zetia and fibrates. She will be started on the fenofibrate. The Zetia can be restarted on a different day. 5. History of diabetes mellitus. Being addressed; she is being monitored. 6. History of chronic kidney disease, and she is also being monitored. Nephrology is on board. 7. Obstructive sleep apnea with nocturnal hypoxemia. Patient prior to this hospitalization was supposed to see pulmonary, Dr. Galdamez, for assessment for a continuous positive airway pressure (CPAP)/bilevel positive airway pressure (BiPAP) machine. Pending further evaluation, she will use oxygen supplement at 2 liters nasal cannula nightly. 8. Deep venous thrombosis (DVT) prophylaxis. On subcu heparin. Mrs. Eunice Mejias seems to be stable. Will continue physical therapy. She will need oxygen at night for sleeping because of her desaturation. Dr. Perez will be covering over the weekend, and he will be informed. Please do not hesitate to call if any questions. KIM
--- NOTE | 2019-05-20 18:39 | DS.PDOC ---
Discharge Summary General Date of Admission May 02, 2019 at 07:44 Date of Discharge 05/07/19 Specialist/Consultants Involve Dr. Morrison and Dr. Remy of Cardiology, Dr. Galdamez and Dr. Burger of Pulmonary, Dr. Doty of Nephrology Discharge Summary PROCEDURES PERFORMED DURING STAY: Very transvenous pacemaker placement by Dr. Remy of Cardiology on 05/02/19 ADMITTING/DISCHARGE DIAGNOSES: Complete heart block possibly 2/2 Beta Blockers Acute kidney injury superimposed on CKD stage III Hyperkalemia Non-anion gap metabolic acidosis COMPLICATIONS/CHIEF COMPLAINT: Complete Heart Block Hyperkalemia. HISTORY OF PRESENT ILLNESS: . 73-year-old female with past medical history of hypertension, diabetes, coronary artery disease, TIA, COPD, asthma, dyslipidemia, and CKD stage III was brought to the emergency room after she was found unresponsive by EMS with a heart rate of 20 and a systolic blood pressure of 50. The patient's history was limited due to her clinical presentation. According to the records, the patient went up to go to the bathroom and had a near syncopal episode. She laid on the couch subsequently and was found to be unresponsive by her . She was brought to the ER for further evaluation. In the ER, the patient was found to be in third-degree heart block. She was also noted to have acute renal failure and hyperkalemia. She was given medications to treat hyperkalemia. A temporary pacemaker was also placed by cardiology for further stabilization. She was admitted to the hospitalist service for further evaluation and management. Complete heart block possibly 2/2 Beta Blockers Originally thought to be secondary beta blockade vs hyperkalemia from worsening renal insufficiency s/p Transvenous temporary pacer placement on 05/02 ECHO did not reveal any acute cardiomyopathy or wall motion abnormalities, and troponins have remained flat Patient's heart rate has improved and she has been doing well with her pacemaker HR settings turned down, and has not required pacing--Transvenous pacemaker has been removed Dr. Morrison/Dr. Remy of Cardiology input appreciated We will continue to monitor BIANCA superimposed on CKD III, resolved Serum Cr back at baseline Nephrology on board Non-anion gap metabolic acidosis, resolved Diabetes ISS ordered CAD with 1 stent The patient does not appear to have any acute ischemic sequelae at this time COPD without exacerbation Continue nebs as ordered Acute pulmonary edema secondary to heart block Improved with Lasix Nocturnal hypoxia - probable TETO Follow-up with pulmonary GERD PO Pepcid DISCHARGE MEDICATIONS: Please see below. ALLERGIES: Please see below. PHYSICAL EXAMINATION ON DISCHARGE: VITAL SIGNS: Please see below. General Exam: Positive: Alert, Cooperative, No Acute Distress ENT Exam: Positive: Atraumatic, Mucous membr. moist/pink Neck Exam: Positive: Other (no JVD, no adenopathy; right IJ transvenous pacemaker present) Chest Exam: Positive: Diminished; Negative: Rales, Rhonchi, Wheezing Heart Exam: Positive: Rate Normal, Normal S1, Normal S2 Telemetry: Positive: Sinus Abdomen Exam: Positive: Soft; Negative: Tenderness Extremity Exam: Negative: Tenderness Psych Exam: Positive: Mental status NL, Mood NL, Oriented x 3 LABORATORY DATA: Please see below. IMAGING: Portable chest, 06:55 a.m., single AP view with the patient supine: Comparison is 02/14/2014. There are diffuse bilateral interstitial infiltrates as an interval change. There are no pleural effusions. Cardiac size is upper maggi, taking into consideration positioning. There is a pacemaker entering from a right IJ approach with the tip in the right atrium. Supine position precludes evaluation for pneumothorax. There is a radiolucent defibrillator paddle over the right hemithorax. Impression: Diffuse bilateral interstitial infiltrates. Pacemaker. Supine positioning precludes evaluation for pneumothorax. Portable chest, 10:22 a.m., single AP view with the patient semi upright: Comparison is 05/02/2019. The bilateral interstitial infiltrates have improved. There are no pleural effusions. Cardiac size is upper normal, unchanged. Right IJ pacemaker is changed. There is no pneumothorax or pleural fluid collection. Impression: The diffuse bilateral infiltrates have improved. PROGNOSIS: Fair ACTIVITY: As tolerated. DIET: 2 g low sodium diet DISCHARGE PLAN: DISPOSITION: 01 Home, Self-Care. DISCHARGE INSTRUCTIONS: Follow-up with primary care physician within 7 days. Follow-up with cardiology within 2-4 weeks. Return to the ER for any acute emergencies. DISCHARGE CONDITION: Stable. TIME SPENT ON DISCHARGE: Greater than 30 minutes. Discharge Medications Scheduled Allopurinol (Zyloprim) 300 Mg Tablet, 300 MG PO DAILY, (Reported) Alpha Lipoic Acid (Alpha Lipoic Acid) 200 Mg Tablet, 200 MG PO DAILY, (Reported) TAKES AT NOON Amlodipine Besylate (Amlodipine Besylate) 10 Mg Tablet, 10 MG PO DAILY, (Reported) Aspirin (Aspirin EC) 81 Mg Tab, 81 MG PO QHS, (Reported) Ezetimibe (Zetia) 10 Mg Tab, 10 MG PO DAILY, (Reported) TAKES AT NOON Fenofibrate Nanocrystallized (Tricor) 145 Mg Tab, 145 MG PO QHS, (Reported) Ferrous Gluconate (Ferrous Gluconate) 324 Mg Tablet, 324 MG PO Q2D, (Reported) TAKES AT DINNER TIME Fluticasone/Vilanterol (Breo Ellipta 100-25 Mcg INH) 1 Inh Inh, 1 PUFF INH DAILY, (Reported) Furosemide (Furosemide) 40 Mg Tablet, 40 MG PO DAILY, (Reported) Glimepiride (Glimepiride) 1 Mg Tablet, 1 MG PO DAILY, (Reported) TAKES AT 1200 Lisinopril (Lisinopril) 20 Mg Tablet, 10 MG PO DAILY, (Reported) Magnesium Oxide (Magnesium) 400 Mg Cap, 400 MG PO BID, (Reported) Metformin HCl (Metformin HCl) 500 Mg Tab, 500 MG PO DAILY, (Reported) Ranitidine Hcl (Ranitidine HCl) 150 Mg Tab, 1 TAB PO BID, (Reported) Spironolactone (Spironolactone) 25 Mg Tablet, 25 MG PO DAILY, (Reported) Scheduled PRN Albuterol Sulfate (Proair Hfa) 108 Mcg/Act Aer, 2 PUFF INH BID PRN for SOB/WHEEZING, (Reported) Alprazolam (Xanax) 0.25 Mg Tab, 0.25 MG PO QID PRN for ANXIETY, (Reported) Docusate Sodium (Stool Softener) 100 Mg Capsule, 100 MG PO DAILY PRN for CONSTIPATION, (Reported) Loratadine (Loratadine) 10 Mg Tablet, 10 MG PO DAILY PRN for ALLERGIES, (Reported) Allergies Coded Allergies: clindamycin (Verified Adverse Reaction, Severe, DEATHLY SICK, 05/02/19) fluticasone (Verified Adverse Reaction, Severe, severe headache, 05/05/19) nebivolol (Verified Adverse Reaction, Severe, heart block, 05/06/19) nitroglycerin (Verified Adverse Reaction, Severe, headache, 05/02/19) morphine (Verified Adverse Reaction, Mild, HYPERACTIVE, 05/02/19) Uncoded Allergies: GENERAL ANESTHESIA (Allergy, Unknown, 05/02/19) CARITO JOSEPH MD May 20, 2019 18:39
== END 2019-05-07 13:12 | disposition home or self-care (01) | DRG 308 ==
LOC: M ED 06:05 → M ED INP 07:44 → M ICU 09:03 → M MSPAV 05-05 17:23
PROVIDERS: ADMIT Family Medicine; ATTEND Internal Medicine
PROC: 5A1223Z Performance of Cardiac Pacing, Continuous (ICD-10-PCS; principal; 2019-05-02)
DX: I44.2 Atrioventricular block, complete (principal); J96.01 Acute respiratory failure with hypoxia; J81.0 Acute pulmonary edema; I50.31 Acute diastolic (congestive) heart failure; N17.9 Acute kidney failure, unspecified; E87.2 Acidosis; I13.0 Hypertensive heart and chronic kidney disease with heart failure and stage 1 through stage 4 chronic kidney disease, or unspecified chronic kidney disease; E87.5 Hyperkalemia; N18.3 Chronic kidney disease, stage 3 (moderate); E11.51 Type 2 diabetes mellitus with diabetic peripheral angiopathy without gangrene; I25.10 Atherosclerotic heart disease of native coronary artery without angina pectoris; Z86.73 Personal history of transient ischemic attack (TIA), and cerebral infarction without residual deficits; J45.909 Unspecified asthma, uncomplicated; E78.5 Hyperlipidemia, unspecified; Z95.2 Presence of prosthetic heart valve; K21.9 Gastro-esophageal reflux disease without esophagitis; Z79.899 Other long term (current) drug therapy; Z79.82 Long term (current) use of aspirin; Z88.5 Allergy status to narcotic agent; Z88.8 Allergy status to other drugs, medicaments and biological substances; Q05.9 Spina bifida, unspecified; E66.9 Obesity, unspecified; M10.30 Gout due to renal impairment, unspecified site; G47.33 Obstructive sleep apnea (adult) (pediatric)

== ENCOUNTER → 2019-08-31 | Outpatient (CLI) | payer MEDICARE ==
[~2019-08-31] MED LIST changes: +ALPHTAB PO; +AMLO10TA5 PO; +BYST10TA2 PO; +DOCU-129 PO; +FERR32TA PO; +FURO40TA2 PO; +GLIM1TAB2 PO; +LISI-538 PO; -LISI20TA PO; +LISI20TA19 PO; +LORA-674 PO; +SPIR-10 PO; +ZETI10TA16 PO; -ZETI10TA30 PO; +ZYLO300T6 PO
--- NOTE | 2019-08-31 10:52 | REP ---
Two-view right hip: 08/31/2019. Indication: Right hip pain. Comparison: CT dated 05/04/2018. Findings: There is no acute fracture, subluxation or dislocation. Joint space narrowing and inferior glenoid spurring are noted. Impression: No acute fracture. Moderate to severe osteoarthritic changes. Electronically Signed by Salvador Bai DO 08/31/2019 10:43 A
== END ==
LOC: M RAD 09:52
PROVIDERS: ATTEND Family Medicine
DX: M25.551 Pain in right hip (principal)

== ENCOUNTER → 2020-04-30 | Outpatient (REF) | payer MEDICARE ==
[~2020-04-30] MED LIST changes: -AMLO10TA5 PO; +AMLO1TAB25 PO; -GLIM1TAB2 PO; +GLIM1TAB4 PO; -LISI20TA19 PO; +LISI20TA35 PO
[2020-04-30 17:57] LABS: PERCENT SATURATION 11.3 % (13.2-45.0)
== END ==
LOC: M LAB REF 17:27
PROVIDERS: ATTEND Internal Medicine Nephrology
DX: D50.9 Iron deficiency anemia, unspecified (principal)

== ENCOUNTER 2020-05-18 12:22 | Outpatient (CLI) | payer MEDICARE ==
[2020-05-18] MEDS ORDERED: FERRIC CARBOXYMALTOSE ONE (12:58)
[2020-05-18] MEDS ORDERED: diphenhydrAMINE 50MG/ML VIAL (J1200) As Ordered ONE (12:58)
[2020-05-18] MEDS ORDERED: diphenhydrAMINE 50MG/ML VIAL (J1200) ONE (12:58)
== END 2020-05-18 17:00 | disposition home or self-care (01) ==
LOC: M INFU 12:22
PROVIDERS: ATTEND Internal Medicine Nephrology
DX: D50.9 Iron deficiency anemia, unspecified (principal)
CPT/HCPCS: 96365; 96366; 96375; J1200; J1439

== ENCOUNTER → 2021-03-06 | Outpatient (REF) | payer MEDICARE ==
[~2021-03-06] MED LIST changes: -DOCU-129 PO; +DOCU-153 PO; -LISI-538 PO; +LISI20TA33 PO
[2021-03-06 18:42] LABS: PERCENT SATURATION 20.8 % (13.2-45.0)
== END ==
LOC: M LAB REF 17:14
PROVIDERS: ATTEND Internal Medicine Nephrology
DX: D50.9 Iron deficiency anemia, unspecified (principal)

== ENCOUNTER → 2021-07-10 | Outpatient (REF) | payer MEDICARE | LOC: M LAB REF 13:23 | PROVIDERS: ATTEND Internal Medicine Nephrology | DX: N18.32 Chronic kidney disease, stage 3b (principal) ==

== ENCOUNTER → 2021-09-10 | Outpatient (REF) | payer MEDICARE | LOC: M LAB REF 17:41 | PROVIDERS: ATTEND Nurse Practitioner Family | DX: N18.32 Chronic kidney disease, stage 3b (principal) ==

== ENCOUNTER → 2022-02-10 | Outpatient (CLI) | payer MEDICARE | LOC: M WUC 10:03 | PROVIDERS: ATTEND Internal Medicine Pulmonary Disease | DX: R91.8 Other nonspecific abnormal finding of lung field (principal) ==

== ENCOUNTER → 2022-03-28 | Outpatient (CLI) | payer MEDICARE | LOC: M RAD 13:43 | PROVIDERS: ATTEND Internal Medicine Nephrology | DX: I82.4Y2 Acute embolism and thrombosis of unspecified deep veins of left proximal lower extremity (principal) ==

== ENCOUNTER → 2022-05-21 | Outpatient (CLI) | payer MEDICARE | LOC: M WUC 13:01 | PROVIDERS: ATTEND Student in an Organized Health Care Education/Training Program | DX: M54.6 Pain in thoracic spine (principal) ==

== ENCOUNTER → 2022-08-21 | Outpatient (REF) | payer MEDICARE ==
[2022-08-22 08:09] LABS: LDL DIRECT 100 mg/dL (0-99)
== END ==
LOC: M LAB REF 13:59
PROVIDERS: ATTEND Family Medicine
DX: E78.5 Hyperlipidemia, unspecified (principal)

== ENCOUNTER → 2022-08-25 | Outpatient (CLI) | payer MEDICARE | LOC: M PLAIMG 11:50 | PROVIDERS: ATTEND Internal Medicine Pulmonary Disease | DX: J45.40 Moderate persistent asthma, uncomplicated (principal) ==

== ENCOUNTER → 2023-01-26 | Outpatient (REF) | payer MEDICARE ==
[2023-01-28 08:09] LABS: LDL DIRECT 88 mg/dL (0-99)
== END ==
LOC: M LAB REF 16:28
PROVIDERS: ATTEND Family Medicine
DX: E78.5 Hyperlipidemia, unspecified (principal)

== ENCOUNTER → 2023-06-04 | Outpatient (CLI) | payer MEDICARE | LOC: M WHC 13:59 | PROVIDERS: ATTEND Family Medicine | DX: Z12.31 Encounter for screening mammogram for malignant neoplasm of breast (principal) ==

== ENCOUNTER → 2023-08-07 | Outpatient (REF) | payer MEDICARE ==
[~2023-08-07] MED LIST changes: +EZET10TA58 PO; +LORA-1041 PO; -LORA-674 PO; -ZETI10TA16 PO
[2023-08-09 07:06] LABS: LDL DIRECT 93 mg/dL (0-99)
== END ==
LOC: M LAB REF 12:32
PROVIDERS: ATTEND Family Medicine
DX: M10.9 Gout, unspecified (principal); E78.5 Hyperlipidemia, unspecified

== ENCOUNTER → 2024-01-11 | Outpatient (REF) | payer MEDICARE ==
[~2024-01-11] MED LIST changes: -DOCU-153 PO; +STOO100C30 PO
[2024-01-12 08:11] LABS: LDL DIRECT 100 mg/dL (0-99)
== END ==
LOC: M LAB REF 11:59
PROVIDERS: ATTEND Family Medicine
DX: E78.5 Hyperlipidemia, unspecified (principal)

== ENCOUNTER 2024-05-12 10:41 | Emergency (ER) | payer MEDICARE ==
[~2024-05-12] VITALS: Ht 152.4 cm; Wt 74.3 kg
[~2024-05-12 10:41] MED LIST changes: -GLIM1TAB4 PO; +GLIM1TAB84 PO
[2024-05-12 11:40] LABS: BASO % 0.6 % (0.0-1.0); EOS # 0.4 10^3/uL (0.0-0.5); EOS % 5.1 % (0.0-3.0); HEMATOCRIT 33.6 % (36.0-47.0); HEMOGLOBIN 10.9 g/dl (12.0-15.5); LYMPH # 2.5 10^3/uL (1.5-5.0); LYMPH % 36.2 % (24.0-44.0); MEAN CORPUSCULAR HEMOGLOBIN 31.2 pg (27.0-33.0); MEAN CORPUSCULAR HGB CONC 32.4 g/dl (32.0-36.5); MEAN CORPUSCULAR VOLUME 96.3 fl (80.0-96.0); MONO # 0.7 10^3/uL (0.0-0.8); MONO % 9.5 % (2.0-8.0); NEUTROPHILS # 3.3 10^3/uL (1.5-8.5); NEUTROPHILS % 47.9 % (36.0-66.0); PLATELET COUNT, AUTOMATED 250 10^3/uL (150-450); RED BLOOD COUNT 3.49 10^6/uL (4.00-5.40); WHITE BLOOD COUNT 6.9 10^3/uL (4.0-10.0)
[2024-05-12] MEDS ORDERED: DOXA1TAB40 (11:48)
[2024-05-12] MEDS ORDERED: LOSA50TA28 (11:48)
[2024-05-12] MEDS ORDERED: JARD1TAB3 (11:48)
[2024-05-12] MEDS ORDERED: CLOP75TA2 (11:48)
[2024-05-12] MEDS ORDERED: LANTINJ4 (11:48)
[2024-05-12] MEDS ORDERED: GLIM4TAB5 (11:48)
[2024-05-12] MEDS ORDERED: HYDR25TA87 (11:48)
[2024-05-12 11:56] LABS: INR 1.02; PROTHROMBIN TIME 13.1 SECONDS (12.5-14.5)
[2024-05-12 11:57] LABS: LIPASE 41 U/L (12-53)
[2024-05-12 11:59] LABS: ALBUMIN 3.1 G/DL (3.2-5.2); ALKALINE PHOSPHATASE 86 U/L (46-116); ALT/SGPT 34 U/L (7.0-40); AST/SGOT 18 U/L (<34); BILIRUBIN,DIRECT < 0.1 MG/DL (<0.4); BILIRUBIN,TOTAL 0.2 MG/DL (0.3-1.2); BLOOD UREA NITROGEN 64 MG/DL (9-23); CALCIUM LEVEL 8.5 MG/DL (8.3-10.6); CARBON DIOXIDE LEVEL 23 MMOL/L (20-31); CHLORIDE LEVEL 108 MMOL/L (98-107); CPK CREATINE PHOSPHOKINASE 64 U/L (34-145); CREATININE FOR GFR 1.37 MG/DL (0.55-1.30); GLOMERULAR FILTRATION RATE 39.6 (>39); GLUCOSE, FASTING 135 MG/DL (74-106); MB/CK RELATIVE INDEX 1.56 (< OR =4); POTASSIUM SERUM 4.2 MMOL/L (3.5-5.1); SODIUM LEVEL 140 MMOL/L (136-145); TOTAL PROTEIN 6.3 G/DL (5.7-8.2)
[2024-05-12 12:01] LABS: THYROID STIMULATING HORMONE 2.337 uIU/ML (0.55-4.78)
[2024-05-12 12:02] LABS: FREE T4 1.34 NG/DL (0.89-1.76)
[2024-05-12] MEDS ORDERED: ISOVUE-370 76% 100ML VIAL As Ordered ONE (12:12)
[2024-05-12] MEDS: ALPRAZolam 0.25 MG TAB PO ONE (12:40)
[2024-05-12] MEDS ORDERED: HYDR50TA46 (12:41)
[2024-05-12 12:49] VITALS: BP 181/78
[2024-05-12] MEDS: **hydrALAZINE** 50 MG TAB PO ONE (12:49)
[2024-05-12 12:56] LABS: CK-MB VALUE MASS < 1.0 NG/ML (<3.6)
[2024-05-12 12:59] LABS: CPK CREATINE PHOSPHOKINASE 69 U/L (34-145); MB/CK RELATIVE INDEX 1.44 (< OR =4)
[2024-05-12] MEDS: EZETIMIBE 10MG TABLET (ZETIA) PO ONE (14:37)
[2024-05-12 15:05] LABS: MB/CK RELATIVE INDEX 1.58 (< OR =4)
[2024-05-12] MEDS ORDERED: MOXI1TAB PO (16:16)
[2024-05-12] MEDS: MOXIFLOXACIN 400 MG TAB PO ONE (16:29)
[2024-05-12 16:30] VITALS: BP 161/61
[2024-05-12 16:31] VITALS: TEMP 96; O2SAT 98
== END 2024-05-12 16:49 | disposition home or self-care (01) ==
LOC: M ED 10:41
DX: J18.9 Pneumonia, unspecified organism (principal); R07.9 Chest pain, unspecified; I50.22 Chronic systolic (congestive) heart failure; I25.119 Atherosclerotic heart disease of native coronary artery with unspecified angina pectoris; E11.9 Type 2 diabetes mellitus without complications; I11.0 Hypertensive heart disease with heart failure; E78.5 Hyperlipidemia, unspecified; J44.9 Chronic obstructive pulmonary disease, unspecified; F41.9 Anxiety disorder, unspecified; Z88.1 Allergy status to other antibiotic agents; Z88.5 Allergy status to narcotic agent; Z88.8 Allergy status to other drugs, medicaments and biological substances; Z79.51 Long term (current) use of inhaled steroids; Z79.1 Long term (current) use of non-steroidal anti-inflammatories (NSAID); Z79.84 Long term (current) use of oral hypoglycemic drugs; Z79.4 Long term (current) use of insulin; Z79.899 Other long term (current) drug therapy

== ENCOUNTER → 2024-06-16 | Outpatient (REF) | payer MEDICARE ==
[~2024-06-16] MED LIST changes: -BYST10TA2 PO; +BYST1TAB3 PO; +CLOP75TA2; +DOXA1TAB40; +GLIM4TAB5; +HYDR25TA87; +HYDR50TA46; +JARD1TAB3; +LANTINJ4; +LOSA50TA28; +MOXI1TAB PO
[2024-06-16 19:23] LABS: PERCENT SATURATION 20.1 % (13.2-45.0)
== END ==
LOC: M LAB REF 17:45
PROVIDERS: ATTEND Internal Medicine Nephrology
DX: D50.9 Iron deficiency anemia, unspecified (principal)

== ENCOUNTER → 2024-08-01 | Outpatient (REF) | payer MEDICARE ==
[2024-08-01 14:25] LABS: URIC ACID 2.3 MG/DL (3.1-7.8)
[2024-08-01 14:27] LABS: IRON (FE) 41 UG/DL (50-170); PERCENT SATURATION 14.6 % (13.2-45.0); TOTAL IRON BINDING CAPACITY 280 UG/DL (250-425)
[2024-08-01 14:55] LABS: FERRITIN 43.2 NG/ML (7.3-270.7)
[2024-08-01 14:57] LABS: VITAMIN B12 LEVEL 578 PG/ML (211-911)
[2024-08-01 14:59] LABS: FOLATE > 24.0 NG/ML (>5.4)
== END ==
LOC: M LAB REF 12:38
PROVIDERS: ATTEND Family Medicine
DX: M10.9 Gout, unspecified (principal); D64.9 Anemia, unspecified

== ENCOUNTER → 2024-10-26 | Outpatient (CLI) | payer MEDICARE ==
[~2024-10-26] MED LIST changes: -CLAR1CHW2 PO; +LORA5TAB15 PO
== END ==
LOC: M WUC 14:06
PROVIDERS: ATTEND Internal Medicine Cardiovascular Disease
DX: R06.09 Other forms of dyspnea (principal)

== ENCOUNTER 2025-01-24 03:58 | Observation (INO) | payer MEDICARE ==
[~2025-01-24] VITALS: Ht 152.4 cm; Wt 75.4 kg
[~2025-01-24 03:58] MED LIST changes: -CLOP75TA2; +CLOP75TA2 PO; -DOXA1TAB40; +DOXA1TAB40 PO; -GLIM4TAB5; +GLIM4TAB5 PO; -JARD1TAB3; +JARD1TAB3 PO; -LANTINJ4; +LANTINJ4 SUBQ; -LOSA50TA28; +LOSA50TA28 PO
[2025-01-24 05:16] LABS: ALBUMIN 2.8 G/DL (3.2-5.2); ALKALINE PHOSPHATASE 78 U/L (35-104); ALT/SGPT 24 U/L (7.0-40); AST/SGOT 20 U/L (<34); BILIRUBIN,DIRECT < 0.1 MG/DL (<0.4); BILIRUBIN,TOTAL < 0.2 MG/DL (0.3-1.2); BLOOD UREA NITROGEN 49 MG/DL (9-23); CALCIUM LEVEL 8.3 MG/DL (8.3-10.6); CARBON DIOXIDE LEVEL 22 MMOL/L (20-31); CHLORIDE LEVEL 109 MMOL/L (98-107); CREATININE FOR GFR 1.25 MG/DL (0.55-1.30); GLOMERULAR FILTRATION RATE 43.6 (>32); GLUCOSE, FASTING 115 MG/DL (74-106); POTASSIUM SERUM 4.3 MMOL/L (3.5-5.1); SODIUM LEVEL 143 MMOL/L (136-145)
[2025-01-24 05:22] LABS: BASO % 0.5 % (0.0-1.0); EOS # 0.3 10^3/uL (0.0-0.5); EOS % 3.2 % (0.0-3.0); HEMATOCRIT 29.6 % (36.0-47.0); HEMOGLOBIN 9.5 g/dl (12.0-15.5); LYMPH # 1.8 10^3/uL (1.5-5.0); LYMPH % 23.1 % (24.0-44.0); MEAN CORPUSCULAR HEMOGLOBIN 30.9 pg (27.0-33.0); MEAN CORPUSCULAR HGB CONC 32.1 g/dl (32.0-36.5); MEAN CORPUSCULAR VOLUME 96.4 fl (80.0-96.0); MONO # 0.7 10^3/uL (0.0-0.8); MONO % 9.1 % (2.0-8.0); NEUTROPHILS # 4.9 10^3/uL (1.5-8.5); NEUTROPHILS % 63.5 % (36.0-66.0); PLATELET COUNT, AUTOMATED 240 10^3/uL (150-450); RED BLOOD COUNT 3.07 10^6/uL (4.00-5.40); WHITE BLOOD COUNT 7.7 10^3/uL (4.0-10.0)
[2025-01-24] MEDS: diphenhydrAMINE 50MG/ML VIAL IV ONE (06:03)
[2025-01-24] MEDS: KETOROLAC 30 MG/ML 1ML VIAL IV ONE (06:03)
[2025-01-24] MEDS: METOCLOPRAMIDE INJ 10MG/2ML VIAL IV ONE (06:03)
[2025-01-24] MEDS: NS (Normal Saline) 0.9% 1,000 ML IV ONE (06:03)
[2025-01-24 06:31] LABS: CK-MB VALUE MASS < 1.0 NG/ML (<3.6)
[2025-01-24 06:41] LABS: CPK CREATINE PHOSPHOKINASE 91 U/L (34-145); MB/CK RELATIVE INDEX 1.09 (< OR =4)
[2025-01-24 06:56] LABS: INR 0.91; PARTIAL THROMBOPLASTIN TIME 47.7 SECONDS (24.8-34.2); PROTHROMBIN TIME 12.6 SECONDS (12.5-14.5)
[2025-01-24 07:09] LABS: MAGNESIUM LEVEL 2.1 MG/DL (1.8-2.4)
[2025-01-24 08:58] LABS: CK-MB VALUE MASS 1.2 NG/ML (<3.6)
[2025-01-24 09:23] LABS: MB/CK RELATIVE INDEX 1.26 (< OR =4)
[2025-01-24] MEDS ORDERED: DEXTROSE 50% 50ML SYRINGE IV PRN (09:30)
[2025-01-24] MEDS ORDERED: ONDANSETRON 4MG 2ML VIAL IV PRN (09:30)
[2025-01-24] MEDS ORDERED: GLUCAGON INJ 1MG VIAL SC PRN (09:30)
[2025-01-24] MEDS ORDERED: GLUCOSE 4 GM CHEW PO PRN (09:30)
[2025-01-24] MEDS ORDERED: FLUT1BLS5 PO (09:54)
[2025-01-24] MEDS ORDERED: IPRA6SP NARES (09:54)
[2025-01-24] MEDS ORDERED: ALLO300T2 PO (09:56)
[2025-01-24] MEDS ORDERED: VENTAER INH (09:56)
[2025-01-24] MEDS ORDERED: HYDR100T26 PO (10:00)
[2025-01-24] MEDS ORDERED: HOME MED LIST COMPLETE! XX SCH (10:05)
[2025-01-24] MEDS: INSULIN LISPRO (NovoLOG) PER UNIT SC SCH ×2 (12:52→21:00)
[2025-01-24] MEDS ORDERED: ALBUTEROL SULFATE 2.5MG/0.5ML INH CONCENTRATE NEB SOLN NEB PRN (13:05)
[2025-01-24] MEDS: ALPRAZolam 0.25 MG TAB PO PRN (13:59)
[2025-01-24] MEDS: allopurinoL 300 MG TAB PO SCH (14:00)
[2025-01-24] MEDS: CLOPIDOGREL 75 MG TAB PO SCH (14:00)
[2025-01-24] MEDS: ASPIRIN 81MG ENTERIC TABLET PO SCH (14:00)
[2025-01-24] MEDS: ADVAIR HFA 115/21MCG INHALER INH SCH (14:36)
[2025-01-24] MEDS: EZETIMIBE 10MG TABLET (ZETIA) PO SCH (14:42)
[2025-01-24] MEDS: DOXAZOSIN MESYLATE 4 MG TAB PO SCH (14:42)
[2025-01-24] MEDS: LOSARTAN 25 MG TAB PO SCH (16:24)
[2025-01-24] MEDS: **hydrALAZINE** 50 MG TAB PO SCH ×2 (16:25→20:18)
[2025-01-24 20:36] VITALS: BP 178/58; TEMP 98; O2SAT 97
[2025-01-25 00:13] VITALS: BP 170/79; TEMP 99.9; O2SAT 96
[2025-01-25] MEDS: SODIUM CHLORIDE NASAL 0.65% SPRAY BTL (OCEAN) PRN (00:15)
[2025-01-25] MEDS: ACETAMINOPHEN 500 MG TAB PO PRN (02:25)
[2025-01-25 03:15] VITALS: BP 151/67; TEMP 100; O2SAT 95
[2025-01-25 06:25] LABS: BASO % 0.3 % (0.0-1.0); EOS % 0.4 % (0.0-3.0); HEMATOCRIT 27.6 % (36.0-47.0); HEMOGLOBIN 8.9 g/dl (12.0-15.5); LYMPH # 1.6 10^3/uL (1.5-5.0); LYMPH % 16.8 % (24.0-44.0); MEAN CORPUSCULAR HGB CONC 32.2 g/dl (32.0-36.5); MEAN CORPUSCULAR VOLUME 96.2 fl (80.0-96.0); MONO # 0.8 10^3/uL (0.0-0.8); MONO % 8.1 % (2.0-8.0); NEUTROPHILS # 7.2 10^3/uL (1.5-8.5); PLATELET COUNT, AUTOMATED 228 10^3/uL (150-450); RED BLOOD COUNT 2.87 10^6/uL (4.00-5.40); WHITE BLOOD COUNT 9.7 10^3/uL (4.0-10.0)
[2025-01-25 06:59] LABS: CALCIUM LEVEL 7.6 MG/DL (8.3-10.6); CREATININE FOR GFR 1.51 MG/DL (0.55-1.30); GLOMERULAR FILTRATION RATE 34.7 (>32); POTASSIUM SERUM 4.6 MMOL/L (3.5-5.1)
[2025-01-25 08:04] VITALS: BP 158/57; TEMP 97.8; O2SAT 97
[2025-01-25 08:19] VITALS: BP_SYST 148; BP_SYST 160; BP_SYST 168; BP_DIAS 64; BP_DIAS 72
[2025-01-25] MEDS: cloNIDine 0.1MG TABLET PO SCH (09:00)
[2025-01-25] MEDS: GLIMEPIRIDE 2 MG TAB PO SCH (09:52)
[2025-01-25] MEDS: **hydrALAZINE** 50 MG TAB PO SCH (09:54)
[2025-01-25] MEDS: LanTUS (INSULIN GLARGINE INJ) 1 UNITS/0.01 ML SC SCH (09:55)
[2025-01-25 10:13] VITALS: BP 158/57
[2025-01-25] MEDS ORDERED: Sodium Chloride Nasal Spray (11:37)
== END 2025-01-25 15:05 | disposition home or self-care (01) ==
LOC: M ED 03:58 → EDBD 03:58 → M ED INP 03:59 → M PCU 20:31
PROVIDERS: ADMIT Internal Medicine Nephrology; ATTEND Internal Medicine Nephrology
DX: R55 Syncope and collapse (principal); I16.0 Hypertensive urgency; R51.9 Headache, unspecified; R10.2 Pelvic and perineal pain; W01.190A Fall on same level from slipping, tripping and stumbling with subsequent striking against furniture, initial encounter; Y92.013 Bedroom of single-family (private) house as the place of occurrence of the external cause; I12.9 Hypertensive chronic kidney disease with stage 1 through stage 4 chronic kidney disease, or unspecified chronic kidney disease; J44.9 Chronic obstructive pulmonary disease, unspecified; N18.30 Chronic kidney disease, stage 3 unspecified; I25.10 Atherosclerotic heart disease of native coronary artery without angina pectoris; Z95.5 Presence of coronary angioplasty implant and graft; E11.21 Type 2 diabetes mellitus with diabetic nephropathy; J45.909 Unspecified asthma, uncomplicated; G47.33 Obstructive sleep apnea (adult) (pediatric); I50.32 Chronic diastolic (congestive) heart failure; D50.9 Iron deficiency anemia, unspecified; E78.5 Hyperlipidemia, unspecified; T46.6X5A Adverse effect of antihyperlipidemic and antiarteriosclerotic drugs, initial encounter; Z88.1 Allergy status to other antibiotic agents; K21.9 Gastro-esophageal reflux disease without esophagitis; M19.90 Unspecified osteoarthritis, unspecified site; I44.2 Atrioventricular block, complete; T44.7X5A Adverse effect of beta-adrenoreceptor antagonists, initial encounter; M10.9 Gout, unspecified; Z90.49 Acquired absence of other specified parts of digestive tract; Z98.41 Cataract extraction status, right eye; Z98.42 Cataract extraction status, left eye; Z90.79 Acquired absence of other genital organ(s); Z82.0 Family history of epilepsy and other diseases of the nervous system; Z82.49 Family history of ischemic heart disease and other diseases of the circulatory system; Z83.3 Family history of diabetes mellitus; Z82.5 Family history of asthma and other chronic lower respiratory diseases; Z88.8 Allergy status to other drugs, medicaments and biological substances; Z88.5 Allergy status to narcotic agent; Z88.4 Allergy status to anesthetic agent; Z79.899 Other long term (current) drug therapy; Z79.82 Long term (current) use of aspirin; Z79.02 Long term (current) use of antithrombotics/antiplatelets
CPT/HCPCS: 36415; 70450; 71045; 72125; 72190; 80048; 80053; 82248; 82550; 82553; 83735; 83880; 84484; 85025; 85610; 85730; 93005; 93041; 93306; 93880; 94640; 94664; 97161; 97530; 99285; G0378; J1200; J1815; J1885; J2765

== ENCOUNTER → 2025-02-14 | Outpatient (CLI) | payer MEDICARE ==
[~2025-02-14] VITALS: Ht 152.4 cm; Wt 74.3 kg
[~2025-02-14] MED LIST changes: +ALBUTEROL SULFATE 2.5MG/0.5ML INH CONCENTRATE NEB SOLN INH PRN; +ALLO300T2 PO; +EPINEPHrine INJ 1 MG/ML 1ML AMP IM PRN; +FLUT1BLS5 PO; +HYDR100T26 PO; +IPRA6SP NARES; +IRON SUCROSE 400 MG in NS 250 ML OVER 2.5 HRS IV ONE; +Sodium Chloride Nasal Spray; +VENTAER INH; +diphenhydrAMINE 50MG/ML VIAL IV PRN; +methylPREDNISolone 125MG 2ML VIAL IV PRN
[2025-02-14] MEDS: diphenhydrAMINE 50MG CAP PO ONE (10:20)
[2025-02-14 10:21] VITALS: BP 173/74; O2SAT 96
[2025-02-14] MEDS: IRON SUCROSE 25 MG in NS 23.75 ML IV ONE (11:16)
[2025-02-14] MEDS: IRON SUCROSE 375 MG in NS 250 ML IV ONE (12:01)
== END ==
LOC: M INFU 09:49
PROVIDERS: ATTEND Internal Medicine Cardiovascular Disease
DX: D50.9 Iron deficiency anemia, unspecified (principal); Z88.5 Allergy status to narcotic agent; Z88.8 Allergy status to other drugs, medicaments and biological substances
CPT/HCPCS: 96365; 96366; J1756

== ENCOUNTER 2025-02-21 09:55 | Outpatient (CLI) | payer MEDICARE ==
[~2025-02-21] VITALS: Ht 152.4 cm; Wt 75.0 kg
[~2025-02-21 09:55] MED LIST changes: -ALPH600C PO; +ALPH600C2 PO; -IRON SUCROSE 400 MG in NS 250 ML OVER 2.5 HRS IV ONE
[2025-02-21] MEDS ORDERED: IRON SUCROSE 400 MG in NS 250 ML OVER 2.5 HRS IV ONE (10:00)
[2025-02-21] MEDS: diphenhydrAMINE 25MG CAP PO ONE (10:02)
[2025-02-21] MEDS: NS IV ONE (10:49)
[2025-02-21] MEDS: IRON SUCROSE COMPLEX IV ONE (10:49)
[2025-02-21 12:00] VITALS: BP 140/74; O2SAT 98
[2025-02-21 13:25] VITALS: BP 160/60; O2SAT 97
== END 2025-02-21 13:30 ==
LOC: M INFU 09:55
PROVIDERS: ATTEND Internal Medicine Cardiovascular Disease
DX: D50.9 Iron deficiency anemia, unspecified (principal); Z88.1 Allergy status to other antibiotic agents; Z88.5 Allergy status to narcotic agent; Z88.8 Allergy status to other drugs, medicaments and biological substances
CPT/HCPCS: 96365; 96366; J1756

== ENCOUNTER → 2025-07-04 | Outpatient (CLI) | payer MEDICARE ==
[~2025-07-04] MED LIST changes: -ALBUTEROL SULFATE 2.5MG/0.5ML INH CONCENTRATE NEB SOLN INH PRN; -EPINEPHrine INJ 1 MG/ML 1ML AMP IM PRN; -diphenhydrAMINE 50MG/ML VIAL IV PRN; -methylPREDNISolone 125MG 2ML VIAL IV PRN
== END ==
LOC: M WUC 12:42
PROVIDERS: ATTEND Nurse Practitioner Family
DX: R06.09 Other forms of dyspnea (principal)

== ENCOUNTER → 2025-07-29 | Outpatient (REF) | payer MEDICARE | LOC: M LAB REF 10:55 | PROVIDERS: ATTEND Family Medicine | DX: R19.7 Diarrhea, unspecified (principal) ==